=== PATIENT | female | born 1955 | race Caucasian/White ===

== ENCOUNTER → 2016-04-13 | Outpatient (CLI) | payer BC ==
[~2016-04-13] MED LIST: CIPR1TAB11 PO; LANS30CA12 PO; LOSA1TAB PO; LRT5 PO
[2016-04-13 09:55] LABS: ESTIMATED AVERAGE GLUCOSE 126 mg/dl; HA1C FLAG Normal (Normal)
[2016-04-13 09:59] LABS: ALT/SGPT 29 U/L (12-78); AST/SGOT 19 U/L (15-37); BLOOD UREA NITROGEN 23 mg/dl (7-18); BUN/CREATININE RATIO 32.5 (10-20); CALCIUM 9.6 mg/dl (8.5-10.1); CARBON DIOXIDE 26 mmol/L (21-32); CHLORIDE 106 mmol/L (98-107); CHOLESTEROL 227 mg/dl (0-200); CREATININE 0.71 mg/dl (0.60-1.20); GLUCOSE 104 mg/dl (70-99); POTASSIUM 4.6 mmol/L (3.5-5.1); SODIUM 142 mmol/L (136-145); TRIGLYCERIDES 95 mg/dl (0-150); VERY LOW DENSITY LIPOPROT CALC 19 mg/dl
[2016-04-13 10:02] LABS: ALB/GLOB RATIO 1.3 (0.9-2); ALKALINE PHOSPHATASE 91 U/L (45-117); CHOLESTEROL/HDL RATIO 3.8; HDL CHOLESTEROL 60 mg/dl; LDL CHOLESTEROL CALCULATED 148 mg/dl
== END | disposition home or self-care (01) ==
LOC: C.LAB 08:55
PROVIDERS: ATTEND Family Medicine
DX: E78.00 Pure hypercholesterolemia, unspecified (principal); I10 Essential (primary) hypertension; R73.03 Prediabetes

== ENCOUNTER → 2016-07-14 | Outpatient (CLI) | payer BC ==
[~2016-07-14] MED LIST changes: +CALC-51 PO; +CPR/500 PO; +IMD2X PO; +LCTX PO; +MISCCAP80 PO; +MULT-506 PO; +OMEG10007 PO; +PHEN-1043 PO; +VITAMIN B12 PO; +VITAMIN D3 PO; +ZINC PO
[2016-07-14 11:24] LABS: BLOOD UREA NITROGEN 25 mg/dl (7-18); BUN/CREATININE RATIO 34.5 (10-20); CARBON DIOXIDE 29 mmol/L (21-32); CHLORIDE 108 mmol/L (98-107); CREATININE 0.73 mg/dl (0.60-1.20); GLUCOSE 92 mg/dl (70-99); PHOSPHORUS 2.9 mg/dl (2.5-4.9); POTASSIUM 4.3 mmol/L (3.5-5.1); SODIUM 144 mmol/L (136-145)
[2016-07-14 11:27] LABS: CALCIUM 9.6 mg/dl (8.5-10.1)
== END | disposition home or self-care (01) ==
LOC: C.LABBC 08:35
PROVIDERS: ATTEND Family Medicine
DX: Z00.00 Encounter for general adult medical examination without abnormal findings (principal); I10 Essential (primary) hypertension

== ENCOUNTER → 2016-09-03 | Outpatient (CLI) | payer BC ==
[~2016-09-03] MED LIST changes: -CALC-51 PO; -CPR/500 PO; -MISCCAP80 PO; -MULT-506 PO; -OMEG10007 PO; -VITAMIN B12 PO; -VITAMIN D3 PO; -ZINC PO
--- NOTE | 2016-09-03 14:05 | DIAGNOSTIC IMAGING REPORT ---
LEFT TIBIA/FIBULA 2 VIEWS ROUTINE CLINICAL HISTORY: 61 years-old Female presenting with TIBIA PAIN L, complaining of pain while sleeping for 1 month, no injury. TECHNIQUE: Frontal and lateral views of the left lower leg were obtained. COMPARISON: None. FINDINGS: No acute fracture or malalignment. No evidence of periosteal reaction. No cortical irregularity or thickening. No rtudy evidence of osseous mass. Grossly normal surrounding soft tissues. Knee joint and ankle joint grossly congruent. IMPRESSION: No abnormality of the left lower leg. Electronically signed by: Ramos Godoy M.D. 09/03/2016 2:03 PM Dictated Date/Time: 09/03/2016 2:01 PM
== END | disposition home or self-care (01) ==
LOC: C.RAD 13:41
PROVIDERS: ATTEND Family Medicine Sports Medicine
DX: M79.605 Pain in left leg (principal)

== ENCOUNTER → 2016-10-09 | Outpatient (CLI) | payer BC | END | disposition home or self-care (01) | LOC: C.LABSPEC 16:33 | PROVIDERS: ATTEND Physician Assistant | DX: N39.0 Urinary tract infection, site not specified (principal) ==

== ENCOUNTER → 2016-10-22 | Outpatient (CLI) | payer BC ==
[2016-10-22 12:17] LABS: URINE APPEARANCE CLEAR (CLEAR); URINE BILIRUBIN NEG (NEG); URINE COLOR YELLOW; URINE NITRITE NEG (NEG); URINE PH 5.5 (4.5-7.5); URINE SPECIFIC GRAVITY 1.012 (1.000-1.030); UROBILINOGEN NEG (NEG)
[2016-10-22 12:24] LABS: MANUAL MICROSCOPIC REQUIRED? NO; REVIEW REQ? NO
== END | disposition home or self-care (01) ==
LOC: C.LAB1850 11:30
PROVIDERS: ATTEND Physician Assistant
DX: N39.0 Urinary tract infection, site not specified (principal)

== ENCOUNTER → 2016-10-29 | Outpatient (CLI) | payer BC ==
--- NOTE | 2016-10-29 11:16 | DIAGNOSTIC IMAGING REPORT ---
KUB CLINICAL HISTORY: Urinary tract infection. FINDINGS: 2 AP supine abdominal radiographs are compared to study dated 04/02/2015 and correlated with abdominal CT dated 04/10/2015. There is a nonobstructed abdominal bowel gas pattern. There is no radiographic evidence of nephrolithiasis. Pelvic phlebolith are observed and a surgical clip is seen in the left pelvis. The skeletal structures are osteopenic. Moderate lumbosacral spondylosis is noted. IMPRESSION: There is no radiographic evidence of nephrolithiasis. Electronically signed by: Lan Cho M.D. 10/29/2016 11:14 AM Dictated Date/Time: 10/29/2016 11:13 AM
== END | disposition home or self-care (01) ==
LOC: C.RAD 10:44
PROVIDERS: ATTEND Urology
DX: N39.0 Urinary tract infection, site not specified (principal)

== ENCOUNTER → 2016-10-30 | Outpatient (CLI) | payer BC ==
[2016-10-30 16:33] LABS: URINE APPEARANCE CLOUDY (CLEAR); URINE BILIRUBIN NEG (NEG); URINE COLOR YELLOW; URINE NITRITE NEG (NEG); URINE SPECIFIC GRAVITY 1.015 (1.000-1.030); UROBILINOGEN NEG (NEG)
[2016-10-30 17:02] LABS: MANUAL MICROSCOPIC REQUIRED? NO; REVIEW REQ? NO
== END | disposition home or self-care (01) ==
LOC: C.LABBFT 15:28
PROVIDERS: ATTEND Physician Assistant Medical
DX: N39.0 Urinary tract infection, site not specified (principal)

== ENCOUNTER → 2016-11-03 | Outpatient (CLI) | payer BC | END | disposition home or self-care (01) | LOC: C.LABSPEC 16:56 | PROVIDERS: ATTEND Urology | DX: R30.0 Dysuria (principal); R31.9 Hematuria, unspecified; N39.0 Urinary tract infection, site not specified; N20.0 Calculus of kidney ==

== ENCOUNTER 2016-11-11 07:34 | Inpatient (IN) | payer BC ==
[~2016-11-11] VITALS: Ht 172.7 cm; Wt 90.3 kg
[~2016-11-11 07:34] MED LIST changes: -CIPR1TAB11 PO; -IMD2X PO; -LCTX PO; -LOSA1TAB PO; -PHEN-1043 PO
[2016-11-11] MEDS ORDERED: LORAZEPAM 2 MG/ML 1 ML VIAL IV STA (07:50)
[2016-11-11] MEDS ORDERED: SODIUM CHLORIDE 0.9% 1000ML 500 ML IV STA (07:50)
[2016-11-11] MEDS ORDERED: ONDANSETRON INJ 2 MG/ML 2 ML VIAL IV STA (07:50)
[2016-11-11] MEDS ORDERED: SODIUM CHLORIDE 0.9% 1000ML 1,000 ML IV STA (07:50)
--- NOTE | 2016-11-11 07:57 | EMERGENCY ROOM VISIT NOTE ---
History Report prepared by Rahul: Ladan Barrios Under the Supervision of: Dr. Lan Nunez M.D. First contact with patient: 07:45 Chief Complaint: ABDOMINAL PAIN Stated Complaint: ABD. PAIN, SWEATING, SHAKING Nursing Triage Summary: pain in abdomen started at 5 am. diarrhea. denies N/V History of Present Illness The patient is a 61 year old female who presents to the Emergency Room with complaints of intermittent abdominal pain that began around 0500 this morning. She currently rates her discomfort as a 2/10 in severity. The patient states that over the past month she has been being treated for UTIs. She states that she has been on two courses of Cipro. The patient states that she has been experiencing diarrhea and nausea this morning. She states that last evening she felt fine before going to bed. The patient states that she has been experiencing diaphoresis. She denies ever having pain like this in the past. The patient denies any history of abdominal surgeries or diverticulitis. She states that she had a normal colonoscopy many years ago. The patient reports a history of hypertension. She denies any hematochezia or melena. According to the patient's records, on the and 30 of October, she had salmonella growth in urine. Latest urine culture on 03 of November showed no growth. Source of History: patient Onset: 0500 this morning Position: abdomen Symptom Intensity: 2/10 Timing: intermittent Associated Symptoms: + diaphoresis, + nausea, + diarrhea, No melena, No hematochezia Review of Systems See HPI for pertinent positives & negatives. A total of 10 systems reviewed and were otherwise negative. Past Medical & Surgical Medical Problems: (1) Acid reflux (2) Hypertension (3) Osteoarthritis (4) SVT (supraventricular tachycardia) (5) UTI (urinary tract infection) Family History Cancer FH: heart disease Hypertension Social History Smoking Status: Never Smoker Smokeless Tobacco Use: No Alcohol Use: occasionally Drug Use: none Marital Status: Housing Status: lives with significant other Occupation Status: retired Current/Historical Medications Scheduled Ciprofloxacin Tab (Cipro), Unknown Dose PO BID Losartan Potassium (Cozaar), 1 TAB PO DAILY Allergies Coded Allergies: No Known Allergies (Unverified , 11/11/16) Physical Exam Vital Signs Date Time Temp Pulse Resp B/P (MAP) Pulse Ox O2 Delivery O2 Flow Rate FiO2 11/11/16 15:12 77 18 144/92 95 Room Air 11/11/16 14:06 71 18 141/80 91 Room Air 11/11/16 12:39 78 19 150/94 95 Room Air 11/11/16 11:07 79 18 157/98 95 Room Air 11/11/16 09:39 79 18 157/94 91 Room Air 11/11/16 08:53 36.5 75 18 178/104 92 Room Air 11/11/16 07:40 94 18 162/111 99 Room Air Physical Exam GENERAL: Patient is in moderate distress, secondary to pain, anxious. HEENT: No acute trauma, normocephalic atraumatic, mucous membranes moist, no nasal congestion, no scleral icterus. NECK: No stridor, no adenopathy, no meningismus, trachea is midline. LUNGS: Clear to auscultation bilaterally, no wheeze, no rhonchi, breath sounds equal. HEART: Without murmurs gallops or rubs, regular rate and rhythm. ABDOMEN: Soft, nontender, bowel sounds positive, no hernias, no peritonitis. EXTREMITIES: No cyanosis or edema, full range of motion of all the joints without pain or difficulty, no signs for acute trauma. NEUROLOGIC: Oriented x 3, no acute motor or sensory deficits, no focal weakness. Tremors noted. SKIN: No rash, no jaundice, no diaphoresis. Medical Decision & Procedures ER Provider Diagnostic Interpretation: Radiology results as stated below per my review and radiologist interpretation: CHEST ONE VIEW PORTABLE CLINICAL HISTORY: 61 years-old Female presenting with ABDOMINAL PAIN/GI. TECHNIQUE: Portable upright AP view of the chest was obtained. COMPARISON: 12/22/2014. FINDINGS: Atherosclerosis of aortic arch. Chronic silhouette normal in size. Mild hyperinflation. Focal linear opacity at the left lung base. No other focal infiltrate. No large effusion or pneumothorax. Anterior cervical fusion hardware noted. Upper abdomen normal. IMPRESSION: 1. Mild hyperinflation and minimal left basilar scarring or atelectasis. No convincing evidence of acute cardiopulmonary disease. Electronically signed by: Ramos Godoy M.D. 11/11/2016 8:27 AM Dictated Date/Time: 11/11/2016 8:26 AM The status of this report is Signed. Draft = Not yet reviewed or approved by Radiologist. Signed = Reviewed and approved by Radiologist. ABDOMEN AND PELVIS CT WITH IV AND ORAL CONTRAST CT DOSE: 943.90 mGycm HISTORY: Generalized abdominal pain. TECHNIQUE: Multiaxial CT images of the abdomen and pelvis were performed following the use of intravenous and oral contrast. A dose lowering technique was utilized adhering to the principles of ALARA. COMPARISON STUDY: Abdomen and pelvis CT 04/10/2015. FINDINGS: The lung bases are clear. Mild hepatic steatosis. The gallbladder, pancreas, spleen, and adrenal glands are unremarkable. A few subcentimeter bilateral renal hypodense lesions. These are too small to characterize. Slight delayed nephrogram on the right in comparison to the left with mild fullness within the right renal collecting system. No hydronephrosis. No ureteral stones. No retroperitoneal lymphadenopathy. The bladder is unremarkable. A few small calcified uterine fibroids. Colonic diverticulosis. Normal appendix. Possible descending colon thickening which favors underdistention. IMPRESSION: 1. Descending colon thickening is likely due to underdistention. However, a low-grade nonspecific colitis is considered less likely but not entirely excluded. Clinical correlation recommended. 2. Mild delayed right nephrogram in comparison to the left with mild right renal collecting fullness. No hydronephrosis. No ureteral calculi identified. This could represent a recently passed stone. Correlation with urinalysis to exclude the less likely possibility of an infectious process. 3. Extensive colonic diverticulosis. Electronically signed by: Christian Canas M.D. 11/11/2016 11:13 AM Dictated Date/Time: 11/11/2016 10:58 AM Laboratory Results 11/11/16 07:55 Red Blood Count 5.13, Mean Corpuscular Volume 88.5, Mean Corpuscular Hemoglobin 28.7, Mean Corpuscular Hemoglobin Concent 32.4, Mean Platelet Volume 9.9, Neutrophils (%) (Auto) 80.6, Lymphocytes (%) (Auto) 11.7, Monocytes (%) (Auto) 5.5, Eosinophils (%) (Auto) 1.5, Basophils (%) (Auto) 0.3, Neutrophils # (Auto) 11.05, Lymphocytes # (Auto) 1.61, Monocytes # (Auto) 0.75, Eosinophils # (Auto) 0.20, Basophils # (Auto) 0.04 11/11/16 07:55 Test 11/11/16 07:55 11/11/16 08:45 White Blood Count 13.71 K/uL (4.8-10.8) Red Blood Count 5.13 M/uL (4.2-5.4) Hemoglobin 14.7 g/dL (12.0-16.0) Hematocrit 45.4 % (37-47) Mean Corpuscular Volume 88.5 fL (80-100) Mean Corpuscular Hemoglobin 28.7 pg (25-34) Mean Corpuscular Hemoglobin Concent 32.4 g/dl (32-36) Platelet Count 342 K/uL (130-400) Mean Platelet Volume 9.9 fL (7.4-10.4) Neutrophils (%) (Auto) 80.6 % Lymphocytes (%) (Auto) 11.7 % Monocytes (%) (Auto) 5.5 % Eosinophils (%) (Auto) 1.5 % Basophils (%) (Auto) 0.3 % Neutrophils # (Auto) 11.05 K/uL (1.4-6.5) Lymphocytes # (Auto) 1.61 K/uL (1.2-3.4) Monocytes # (Auto) 0.75 K/uL (0.11-0.59) Eosinophils # (Auto) 0.20 K/uL (0-0.5) Basophils # (Auto) 0.04 K/uL (0-0.2) RDW Standard Deviation 42.6 fL (36.4-46.3) RDW Coefficient of Variation 13.1 % (11.5-14.5) Immature Granulocyte % (Auto) 0.4 % Immature Granulocyte # (Auto) 0.06 K/uL (0.00-0.02) Anion Gap 9.0 mmol/L (3-11) Est Creatinine Clear Calc Drug Dose 79.6 ml/min Estimated GFR () 84.5 Estimated GFR (Non- 72.9 BUN/Creatinine Ratio 21.8 (10-20) Calcium Level 10.0 mg/dl (8.5-10.1) Total Bilirubin 0.6 mg/dl (0.2-1) Aspartate Amino Transf (AST/SGOT) 17 U/L (15-37) Alanine Aminotransferase (ALT/SGPT) 28 U/L (12-78) Alkaline Phosphatase 113 U/L (45-117) Total Protein 7.8 gm/dl (6.4-8.2) Albumin 4.0 gm/dl (3.4-5.0) Globulin 3.8 gm/dl (2.5-4.0) Albumin/Globulin Ratio 1.1 (0.9-2) Lipase 230 U/L (73-393) Urine Color YELLOW Urine Appearance CLEAR (CLEAR) Urine pH 7.5 (4.5-7.5) Urine Specific [place] 1.013 (1.000-1.030) Urine Protein NEG (NEG) Urine Glucose (UA) NEG (NEG) Urine Ketones NEG (NEG) Urine Occult Blood NEG (NEG) Urine Nitrite NEG (NEG) Urine Bilirubin NEG (NEG) Urine Urobilinogen NEG (NEG) Urine Leukocyte Esterase NEG (NEG) Laboratory results reviewed by me. Medications Administered Medications (Trade) Dose Ordered Sig/Matt Route Start Time Stop Time Status Last Admin Dose Admin Sodium Chloride 500 ml @ 999 mls/hr Q31M STAT IV 11/11/16 07:50 11/11/16 08:20 DC 11/11/16 07:50 999 MLS/HR Ondansetron HCl (Zofran Inj) 4 mg NOW STAT IV 11/11/16 07:50 11/11/16 07:55 DC 11/11/16 08:14 4 MG Sodium Chloride 1,000 ml @ 125 mls/hr Q8H STAT IV 11/11/16 07:50 11/11/16 15:49 DC 11/11/16 08:15 125 MLS/HR Lorazepam (Ativan Inj) 0.5 mg NOW STAT IV 11/11/16 07:50 11/11/16 07:55 DC 11/11/16 08:14 0.5 MG Acetaminophen (Tylenol Tab) 1,000 mg NOW STAT PO 11/11/16 09:44 11/11/16 09:45 DC 11/11/16 09:56 1,000 MG ED Course 0746: The patient was evaluated in room A2. A complete history and physical exam was performed. 0750: Ordered Ativan Inj 0.5 mg IV, Sodium Chloride 1000 ml @ 125 mls/hr IV, Zofran Inj 4 mg IV, Sodium Chloride 500 ml @ 999 mls/hr IV. 0944: Ordered Tylenol Tab 1000 mg PO. 1140: I reevaluated the patient and she is resting. I discussed the exam findings with her and her family and I discussed the treatment plan. They verbalized complete understanding and agreement. The patient will be evaluated for further treatment. 1150: I discussed the patient's case with WALDO Coker. He will evaluate the patient for further treatment. Medical Decision The patient is a 61 year old female who presents to the ED with complaints of abdominal pain. Differential diagnoses considered include Dehydration, colitis , diverticulitis, fistula, UTI, anemia, electrolyte imbalance, foodborne illness , c-diff colitis.. There is a mild leukocytosis, this could be consistent with infection, no anemia. No significant electrolyte abnormality, kidney failure or hepatitis. There is no pancreatitis. Urinalysis does not show infection. Abdominal and pelvis CT shows a colitis, no diverticulitis or abscess. The patient's pain was subsiding on its own, she did not require strong pain medication. She was given some oral Tylenol. She received IV Ativan for anxiety, she was given IV saline. She received IV Zofran for nausea. The patient was able to provide a stool sample. Stool cultures are pending. Stool C. difficile was negative. Given the failure of outpatient treatment, given the ongoing issues, given the CT findings and leukocytosis, admission/observation was felt warranted. I spoke to the patient and case management assistant. The on-call hospitalist was consulted. Medication Reconcilliation Current Medication List: was personally reviewed by me Consults Time Called: 1145 Consulting Physician: WALDO Coker Returned Call: 1150 I discussed the patient's case with WALDO Coker. He will evaluate the patient for further treatment. Impression Primary Impression: Colitis Additional Impressions: Lower abdominal pain Failure of outpatient treatment Leukocytosis Diarrhea Scribe Attestation The scribe's documentation has been prepared under my direction and personally reviewed by me in its entirety. I confirm that the note above accurately reflects all work, treatment, procedures, and medical decision making performed by me. Departure Information Dispostion Being Evaluated By Hospitalist Referrals Arya Galloway M.D. (PCP) Patient Instructions My [facility] Problem Qualifiers
[2016-11-11] MEDS ORDERED: MoRPHine SULFATE 4 MG/ML 1 ML CARP\\VIAL IV PRN (08:00)
[2016-11-11 08:07] LABS: BASO % 0.3 %; BASO ABS # 0.04 K/uL (0-0.2); COMPLETE YES; EOS % 1.5 %; HEMATOCRIT 45.4 % (37-47); IG% 0.4 %; LYMPH % 11.7 %; LYMPH ABS # 1.61 K/uL (1.2-3.4); MEAN CELL VOLUME 88.5 fL (80-100); MEAN CORPUSCULAR HEMOGLOBIN 28.7 pg (25-34); MEAN CORPUSCULAR HGB CONC 32.4 g/dl (32-36); MEAN PLATELET VOLUME 9.9 fL (7.4-10.4); MONO % 5.5 %; NEUT % 80.6 %; PLATELET COUNT 342 K/uL (130-400); RED BLOOD COUNT 5.13 M/uL (4.2-5.4); WHITE BLOOD COUNT 13.71 K/uL (4.8-10.8)
[2016-11-11] MEDS ORDERED: CIPR1TAB11 PO (08:18)
[2016-11-11] MEDS ORDERED: LOSA1TAB PO (08:18)
[2016-11-11 08:25] LABS: BUN/CREATININE RATIO 21.8 (10-20); CREATININE 0.85 mg/dl (0.60-1.20); POTASSIUM 3.6 mmol/L (3.5-5.1)
[2016-11-11 08:28] LABS: ALB/GLOB RATIO 1.1 (0.9-2)
--- NOTE | 2016-11-11 08:28 | DIAGNOSTIC IMAGING REPORT ---
CHEST ONE VIEW PORTABLE CLINICAL HISTORY: 61 years-old Female presenting with ABDOMINAL PAIN/GI. TECHNIQUE: Portable upright AP view of the chest was obtained. COMPARISON: 12/22/2014. FINDINGS: Atherosclerosis of aortic arch. Chronic silhouette normal in size. Mild hyperinflation. Focal linear opacity at the left lung base. No other focal infiltrate. No large effusion or pneumothorax. Anterior cervical fusion hardware noted. Upper abdomen normal. IMPRESSION: 1. Mild hyperinflation and minimal left basilar scarring or atelectasis. No convincing evidence of acute cardiopulmonary disease. Electronically signed by: Ramos Godoy M.D. 11/11/2016 8:27 AM Dictated Date/Time: 11/11/2016 8:26 AM
[2016-11-11 09:01] LABS: URINE APPEARANCE CLEAR (CLEAR); URINE BILIRUBIN NEG (NEG); URINE COLOR YELLOW; URINE NITRITE NEG (NEG); URINE PH 7.5 (4.5-7.5); URINE SPECIFIC GRAVITY 1.013 (1.000-1.030); UROBILINOGEN NEG (NEG); ZZURINE CULT IF INDIC CATH NO
[2016-11-11 09:02] LABS: MANUAL MICROSCOPIC REQUIRED? NO; REVIEW REQ? NO
[2016-11-11] MEDS ORDERED: HydrALAZINE HCL 20 MG/ML VIAL IV STA (09:21)
[2016-11-11] MEDS ORDERED: ACETAMINOPHEN 500 MG TAB PO STA (09:44)
--- NOTE | 2016-11-11 11:14 | DIAGNOSTIC IMAGING REPORT ---
ABDOMEN AND PELVIS CT WITH IV AND ORAL CONTRAST CT DOSE: 943.90 mGycm HISTORY: Generalized abdominal pain. TECHNIQUE: Multiaxial CT images of the abdomen and pelvis were performed following the use of intravenous and oral contrast. A dose lowering technique was utilized adhering to the principles of ALARA. COMPARISON STUDY: Abdomen and pelvis CT 04/10/2015. FINDINGS: The lung bases are clear. Mild hepatic steatosis. The gallbladder, pancreas, spleen, and adrenal glands are unremarkable. A few subcentimeter bilateral renal hypodense lesions. These are too small to characterize. Slight delayed nephrogram on the right in comparison to the left with mild fullness within the right renal collecting system. No hydronephrosis. No ureteral stones. No retroperitoneal lymphadenopathy. The bladder is unremarkable. A few small calcified uterine fibroids. Colonic diverticulosis. Normal appendix. Possible descending colon thickening which favors underdistention. IMPRESSION: 1. Descending colon thickening is likely due to underdistention. However, a low-grade nonspecific colitis is considered less likely but not entirely excluded. Clinical correlation recommended. 2. Mild delayed right nephrogram in comparison to the left with mild right renal collecting fullness. No hydronephrosis. No ureteral calculi identified. This could represent a recently passed stone. Correlation with urinalysis to exclude the less likely possibility of an infectious process. 3. Extensive colonic diverticulosis. Electronically signed by: Christian Canas M.D. 11/11/2016 11:13 AM Dictated Date/Time: 11/11/2016 10:58 AM
--- NOTE | 2016-11-11 14:29 | History and Physical ---
History & Physical Date & Time of Service: Nov 11, 2016 at 14:11 Chief Complaint: Abd. Pain, Sweating, Shaking Primary Care Physician: No Doctor, Assigned History of Present Illness Source: patient Past Medical/Surgical History Medical Problems: (1) Acid reflux Status: Chronic (2) Hypertension Status: Chronic (3) Osteoarthritis Status: Chronic (4) SVT (supraventricular tachycardia) Status: Resolved (5) UTI (urinary tract infection) Status: Resolved Family History Cancer FH: heart disease Hypertension Social History Smoking Status: Never Smoker Smokeless Tobacco Use: No Drug Use: none Marital Status: Occupational Status: retired Immunizations History of Influenza Vaccine: Yes Influenza Vaccine Date: Nov 11, 2009 History of Tetanus Vaccine?: Yes Tetanus Immunization Date: Sep 11, 2009 History of Pneumococcal: No History of Hepatitis B Vaccine: Yes Multi-Drug Resistant Organisms History of MDRO: No Allergies Coded Allergies: No Known Allergies (Unverified , 11/11/16) Home Medications Scheduled Ciprofloxacin Tab (Cipro), Unknown Dose PO BID Losartan Potassium (Cozaar), 1 TAB PO DAILY Physical Exam Vital Signs Date Time Temp Pulse Resp B/P (MAP) Pulse Ox O2 Delivery O2 Flow Rate FiO2 11/11/16 12:39 78 19 150/94 95 Room Air 11/11/16 11:07 79 18 157/98 95 Room Air 11/11/16 09:39 79 18 157/94 91 Room Air 11/11/16 08:53 36.5 75 18 178/104 92 Room Air 11/11/16 07:40 94 18 162/111 99 Room Air Diagnostics Laboratory Results Results Past 24 Hours Test 11/11/16 07:55 11/11/16 08:45 Range/Units White Blood Count 13.71 4.8-10.8 K/uL Red Blood Count 5.13 4.2-5.4 M/uL Hemoglobin 14.7 12.0-16.0 g/dL Hematocrit 45.4 37-47 % Mean Corpuscular Volume 88.5 80-100 fL Mean Corpuscular Hemoglobin 28.7 25-34 pg Mean Corpuscular Hemoglobin Concent 32.4 32-36 g/dl Platelet Count 342 130-400 K/uL Mean Platelet Volume 9.9 7.4-10.4 fL Neutrophils (%) (Auto) 80.6 % Lymphocytes (%) (Auto) 11.7 % Monocytes (%) (Auto) 5.5 % Eosinophils (%) (Auto) 1.5 % Basophils (%) (Auto) 0.3 % Neutrophils # (Auto) 11.05 1.4-6.5 K/uL Lymphocytes # (Auto) 1.61 1.2-3.4 K/uL Monocytes # (Auto) 0.75 0.11-0.59 K/uL Eosinophils # (Auto) 0.20 0-0.5 K/uL Basophils # (Auto) 0.04 0-0.2 K/uL RDW Standard Deviation 42.6 36.4-46.3 fL RDW Coefficient of Variation 13.1 11.5-14.5 % Immature Granulocyte % (Auto) 0.4 % Immature Granulocyte # (Auto) 0.06 0.00-0.02 K/uL Sodium Level 140 136-145 mmol/L Potassium Level 3.6 3.5-5.1 mmol/L Chloride Level 106 98-107 mmol/L Carbon Dioxide Level 25 21-32 mmol/L Anion Gap 9.0 3-11 mmol/L Blood Urea Nitrogen 19 7-18 mg/dl Creatinine 0.85 0.60-1.20 mg/dl Est Creatinine Clear Calc Drug Dose 79.6 ml/min Estimated GFR () 84.5 Estimated GFR (Non- 72.9 BUN/Creatinine Ratio 21.8 10-20 Random Glucose 129 70-99 mg/dl Calcium Level 10.0 8.5-10.1 mg/dl Total Bilirubin 0.6 0.2-1 mg/dl Aspartate Amino Transf (AST/SGOT) 17 15-37 U/L Alanine Aminotransferase (ALT/SGPT) 28 12-78 U/L Alkaline Phosphatase 113 45-117 U/L Total Protein 7.8 6.4-8.2 gm/dl Albumin 4.0 3.4-5.0 gm/dl Globulin 3.8 2.5-4.0 gm/dl Albumin/Globulin Ratio 1.1 0.9-2 Lipase 230 73-393 U/L Urine Color YELLOW Urine Appearance CLEAR CLEAR Urine pH 7.5 4.5-7.5 Urine Specific [place] 1.013 1.000-1.030 Urine Protein NEG NEG Urine Glucose (UA) NEG NEG Urine Ketones NEG NEG Urine Occult Blood NEG NEG Urine Nitrite NEG NEG Urine Bilirubin NEG NEG Urine Urobilinogen NEG NEG Urine Leukocyte Esterase NEG NEG Microbiology Results 11/11/16 Shiga Toxin Test, Received Pending 11/11/16 Stool Culture, Received Pending 11/11/16 C.difficile Toxin B Gene (PCR), Received Pending Diagnostic Radiology CT abdomen/pelvis: 1. Descending colon thickening is likely due to underdistention. However, a low- grade nonspecific colitis is considered less likely but not entirely excluded. Clinical correlation recommended. 2. Mild delayed right nephrogram in comparison to the left with mild right renal collecting fullness. No hydronephrosis. No ureteral calculi identified. This could represent a recently passed stone. Correlation with urinalysis to exclude the less likely possibility of an infectious process. 3. Extensive colonic diverticulosis.
--- NOTE | 2016-11-11 15:12 | History and Physical ---
History & Physical Date & Time of Service: Nov 11, 2016 at 14:57 Chief Complaint: Abd. Pain, Sweating, Shaking Primary Care Physician: No Doctor, Assigned History of Present Illness Source: patient, family Ms. Miranda began having a lot of abdominal pain with diarrhea as well as diaphoresis, shakes, and chills this morning around 0500. She thinks she may have had a syncopal event on the toilet and again when she got herself into bed. She has been having urinary tract infections starting in October. She was started on macrobid but was changed to amoxil after being diagnosed with salmonella without relief of symptoms. Urine was rechecked and was clear. She was again diagnosed with salmonella in her urine last week. She was then started on Cipro. She then saw Dr. Ng in urology who gave her another seven days of Cipro. She denies blood in her stool, vomiting, or fever. She did have chicken salad and some potato salad yesterday afternoon. No sick contacts History significant for htn, frequent UTIs Past Medical/Surgical History Medical Problems: (1) Acid reflux Status: Chronic (2) Hypertension Status: Chronic (3) Osteoarthritis Status: Chronic (4) SVT (supraventricular tachycardia) Status: Resolved (5) UTI (urinary tract infection) Status: Resolved Family History Cancer FH: heart disease Hypertension Social History Smoking Status: Never Smoker Smokeless Tobacco Use: No Drug Use: none Marital Status: Occupational Status: retired Immunizations History of Influenza Vaccine: Yes Influenza Vaccine Date: Nov 11, 2009 History of Tetanus Vaccine?: Yes Tetanus Immunization Date: Sep 11, 2009 History of Pneumococcal: No History of Hepatitis B Vaccine: Yes Multi-Drug Resistant Organisms History of MDRO: No Allergies Coded Allergies: No Known Allergies (Unverified , 11/11/16) Home Medications Scheduled Ciprofloxacin Tab (Cipro), Unknown Dose PO BID Losartan Potassium (Cozaar), 1 TAB PO DAILY Review of Systems Constitutional: + chills Respiratory: No shortness of breath Cardiovascular: No chest pain Abdomen: + pain, + nausea, + diarrhea, No vomiting, No GI bleeding Genitourinary - Female: + dysuria Physical Exam Vital Signs Date Time Temp Pulse Resp B/P (MAP) Pulse Ox O2 Delivery O2 Flow Rate FiO2 11/11/16 14:06 71 18 141/80 91 Room Air 11/11/16 12:39 78 19 150/94 95 Room Air 11/11/16 11:07 79 18 157/98 95 Room Air 11/11/16 09:39 79 18 157/94 91 Room Air 11/11/16 08:53 36.5 75 18 178/104 92 Room Air 11/11/16 07:40 94 18 162/111 99 Room Air General: no distress Eyes: normal inspection, PERLL Respiratory: chest non tender, clear to auscultation, normal breath sounds, no respiratory distress, no accessory muscle use Cardiac: regular rate and rhythm, no rub or gallop, no murmur, no edema, no jvd GI/: active bowel sounds, suprapubic tenderneess, soft, non distended Extremities: normal range of motion, normal strength, non tender Neuro/Psych: alert and oriented x 3, normal mood and affect Skin: normal color, dry Diagnostics Laboratory Results Results Past 24 Hours Test 11/11/16 07:55 11/11/16 08:45 Range/Units White Blood Count 13.71 4.8-10.8 K/uL Red Blood Count 5.13 4.2-5.4 M/uL Hemoglobin 14.7 12.0-16.0 g/dL Hematocrit 45.4 37-47 % Mean Corpuscular Volume 88.5 80-100 fL Mean Corpuscular Hemoglobin 28.7 25-34 pg Mean Corpuscular Hemoglobin Concent 32.4 32-36 g/dl Platelet Count 342 130-400 K/uL Mean Platelet Volume 9.9 7.4-10.4 fL Neutrophils (%) (Auto) 80.6 % Lymphocytes (%) (Auto) 11.7 % Monocytes (%) (Auto) 5.5 % Eosinophils (%) (Auto) 1.5 % Basophils (%) (Auto) 0.3 % Neutrophils # (Auto) 11.05 1.4-6.5 K/uL Lymphocytes # (Auto) 1.61 1.2-3.4 K/uL Monocytes # (Auto) 0.75 0.11-0.59 K/uL Eosinophils # (Auto) 0.20 0-0.5 K/uL Basophils # (Auto) 0.04 0-0.2 K/uL RDW Standard Deviation 42.6 36.4-46.3 fL RDW Coefficient of Variation 13.1 11.5-14.5 % Immature Granulocyte % (Auto) 0.4 % Immature Granulocyte # (Auto) 0.06 0.00-0.02 K/uL Sodium Level 140 136-145 mmol/L Potassium Level 3.6 3.5-5.1 mmol/L Chloride Level 106 98-107 mmol/L Carbon Dioxide Level 25 21-32 mmol/L Anion Gap 9.0 3-11 mmol/L Blood Urea Nitrogen 19 7-18 mg/dl Creatinine 0.85 0.60-1.20 mg/dl Est Creatinine Clear Calc Drug Dose 79.6 ml/min Estimated GFR () 84.5 Estimated GFR (Non- 72.9 BUN/Creatinine Ratio 21.8 10-20 Random Glucose 129 70-99 mg/dl Calcium Level 10.0 8.5-10.1 mg/dl Total Bilirubin 0.6 0.2-1 mg/dl Aspartate Amino Transf (AST/SGOT) 17 15-37 U/L Alanine Aminotransferase (ALT/SGPT) 28 12-78 U/L Alkaline Phosphatase 113 45-117 U/L Total Protein 7.8 6.4-8.2 gm/dl Albumin 4.0 3.4-5.0 gm/dl Globulin 3.8 2.5-4.0 gm/dl Albumin/Globulin Ratio 1.1 0.9-2 Lipase 230 73-393 U/L Urine Color YELLOW Urine Appearance CLEAR CLEAR Urine pH 7.5 4.5-7.5 Urine Specific [place] 1.013 1.000-1.030 Urine Protein NEG NEG Urine Glucose (UA) NEG NEG Urine Ketones NEG NEG Urine Occult Blood NEG NEG Urine Nitrite NEG NEG Urine Bilirubin NEG NEG Urine Urobilinogen NEG NEG Urine Leukocyte Esterase NEG NEG Microbiology Results 11/11/16 Shiga Toxin Test, Received Pending 11/11/16 Stool Culture, Received Pending 11/11/16 C.difficile Toxin B Gene (PCR) - Final, Complete No C. difficile toxin B gene detected Impression Assessment and Plan Ms. Miranda is a 61 year old woman here for diarrhea with possible syncopal event this morning. 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 Diarrhea/colitis - It is possible that the colitis is due to salmonella infection given that it has been persistent in her urine. Alternative etiologies include food poisoning or viral infection. She shows mild colitis on imaging. -admit observation to the medical floor. -C. diff negative, stool cultures pending, -continue Cipro, start Flagyl, -clear liquid diet -NSS - morphine for pain Syncope - likely vagal event as it was associated with a bowel movement and diaphoresis. HTN - continue losartan DVT prophylaxis - SCDs Full resuscitation. Resident Physician Supervision Note: Pt seen/evaluated following discussion with GYNECOLOGICAL ASSISTANT. I discussed the case with the GYNECOLOGICAL ASSISTANT and agree with the findings and plan as documented in the note. Any exceptions or clarifications are listed here: 61 y/o F - recent UTI and 2x positive Salmonella group C cultures in urine Presenting with severe abdominal pain, diarrhea - syncopal pr near syncopal episode on toilet and again when getting up. OE AAO x 3 S1,2 R CTAB + diffuse, mild tenderness No CCE No deficits P: There is mild colitis seen on CT - C-diff is negative - unclear if this is rellated to her recent + culture r simply unrelated infectious colitis - it may be that she would reuire Cipro at a higher dose if stool is + She is admitted for IVF, cultures and IV antibiotics due to her syncopal episodes We will consult ID Cont Losartan for HTN Discussed above with pt and ER attending Documented By: Alex Davis Advanced Directives Existing Advance Directive: Yes Existing Living Will: Yes Existing Power of Cell Assembly Pinner: Yes () Resuscitation Status FULL RESUSCITATION VTE Prophylaxis VTE Risk Assessment Done? Y/N: Yes Risk Level: Moderate
[2016-11-11] MEDS ORDERED: MoRPHine SULFATE 2 MG/ML CARP IV PRN (15:30)
[2016-11-11] MEDS ORDERED: ONDANSETRON INJ 2 MG/ML 2 ML VIAL IV PRN (15:30)
[2016-11-11] MEDS ORDERED: LORAZEPAM 0.5 MG TAB PO PRN (15:30)
[2016-11-11] MEDS ORDERED: IV FLUIDS COMPLETED PRN (16:15)
[2016-11-11 17:00] VITALS: BP 158/79; PULSE 68; TEMP 37.3; O2SAT 97
[2016-11-11] MEDS: SODIUM CHLORIDE 0.9% 1000ML 1,000 ML IV SCH ×2 (17:59→23:36)
[2016-11-11] MEDS: ACETAMINOPHEN 325 MG TAB PO PRN ×2 (18:15→22:02)
[2016-11-11 18:23] VITALS: BP 156/91; PULSE 68; TEMP 37.3; O2SAT 97; Ht 172.7 cm; Wt 90.3 kg
[2016-11-11] MEDS: METRONIDAZOLE 500 MG TAB PO SCH ×2 (19:35→23:33)
[2016-11-11] MEDS: CIPROFLOXACIN 500 MG TAB PO SCH (20:12)
[2016-11-11] MEDS ORDERED: CIPROFLOXACIN 500 MG TAB PO SCH (21:00)
[2016-11-11 22:34] VITALS: BP 157/79; PULSE 67; TEMP 37; O2SAT 95
[2016-11-12] MEDS: ACETAMINOPHEN 325 MG TAB PO PRN ×2 (03:13→16:58)
[2016-11-12] MEDS: METRONIDAZOLE 500 MG TAB PO SCH ×3 (05:47→21:56)
[2016-11-12 05:54] LABS: BASO % 0.6 %; BASO ABS # 0.04 K/uL (0-0.2); COMPLETE YES; EOS % 3.5 %; HEMATOCRIT 37.7 % (37-47); IG% 0.1 %; LYMPH % 32.7 %; LYMPH ABS # 2.24 K/uL (1.2-3.4); MEAN CELL VOLUME 89.3 fL (80-100); MEAN CORPUSCULAR HEMOGLOBIN 30.1 pg (25-34); MEAN CORPUSCULAR HGB CONC 33.7 g/dl (32-36); MEAN PLATELET VOLUME 9.6 fL (7.4-10.4); MONO % 7.9 %; NEUT % 55.2 %; PLATELET COUNT 280 K/uL (130-400); RED BLOOD COUNT 4.22 M/uL (4.2-5.4); WHITE BLOOD COUNT 6.84 K/uL (4.8-10.8)
[2016-11-12 06:20] LABS: BUN/CREATININE RATIO 12.3 (10-20); CREATININE 0.75 mg/dl (0.60-1.20); POTASSIUM 3.6 mmol/L (3.5-5.1)
[2016-11-12 06:41] LABS: CALCIUM 8.3 mg/dl (8.5-10.1)
[2016-11-12 07:09] VITALS: BP 143/73; PULSE 62; TEMP 36.9; O2SAT 96
[2016-11-12] MEDS: SODIUM CHLORIDE 0.9% 1000ML 1,000 ML IV SCH ×3 (07:09→23:16)
[2016-11-12 08:00] VITALS: O2SAT 96
[2016-11-12] MEDS: LOSARTAN POTASSIUM 25 MG TAB PO SCH (08:04)
[2016-11-12] MEDS: CIPROFLOXACIN 500 MG TAB PO SCH ×2 (08:05→20:44)
--- NOTE | 2016-11-12 10:22 | Medical Consult ---
Consultation Date of Consultation: Nov 12, 2016. Attending Physician: Geovanni Nolen D.O. Reason for Consultation: Two positive salmonella cultures History of Present Illness 61-year-old female who was in usual state of health until early October when she had the onset of dysuria and frequency with foul smelling urine. She saw her primary care doctor obtain urine culture which was positive for group C salmonella. She received a course of amoxicillin 250 t.i.d. with some improvement in symptoms. Soon after discontinuation she had recurrence of her symptoms. Follow-up culture was negative at that time. Symptoms persisted and became progressively worse, and another culture was positive for Salmonella. She was then treated with 2 courses of 1 week of Cipro without improvement. She then developed acute onset of worsening abdominal pain with chills and weakness with several syncopal events, and was admitted to the hospital for further management.She currently is receiving IV ciprofloxacin. Still feels miserable. Abdominal pain persists, 3/10 in intensity at present. Having diarrhea. Past Medical/Surgical History Medical Problems: (1) Colitis Status: Acute (2) Diarrhea Status: Acute (3) Failure of outpatient treatment Status: Acute (4) Leukocytosis Status: Acute (5) Lower abdominal pain Status: Acute Medical Problems: (1) Acid reflux (2) Hypertension (3) Osteoarthritis (4) SVT (supraventricular tachycardia) (5) UTI (urinary tract infection) Family History Cancer FH: heart disease Hypertension Social History Smoking Status: Never Smoker Smokeless Tobacco Use: No Drug Use: none Marital Status: Housing Status: lives with significant other Occupation Status: retired Allergies Coded Allergies: No Known Allergies (Unverified , 11/11/16) Current Inpatient Medications Current Inpatient Medications Medications (Trade) Dose Ordered Sig/Matt Route Start Time Stop Time Status Last Admin Dose Admin Acetaminophen (Tylenol Tab) 650 mg Q4H PRN PO 11/11/16 15:30 12/11/16 15:29 11/12/16 03:13 650 MG Ondansetron HCl (Zofran Inj) 4 mg Q6H PRN IV 11/11/16 15:30 12/11/16 15:29 Morphine Sulfate (MoRPHine SULFATE INJ) 2 mg Q4H PRN IV 11/11/16 15:30 11/25/16 15:29 11/12/16 05:54 2 MG Sodium Chloride 1,000 ml @ 125 mls/hr Q8H IV 11/11/16 15:30 12/11/16 15:29 11/12/16 07:09 125 MLS/HR Metronidazole (Flagyl Tab) 500 mg Q8 PO 11/11/16 17:30 11/21/16 17:29 11/12/16 05:47 500 MG Lorazepam (Ativan Tab) 0.5 mg Q6H PRN PO 11/11/16 15:30 12/11/16 15:29 Losartan Potassium (coZAAR TAB) 25 mg DAILY PO 11/12/16 09:00 12/12/16 08:59 11/12/16 08:04 25 MG Miscellaneous (Iv Fluids Completed) 1 ea PRN PRN N/A 11/11/16 16:15 11/11/17 16:14 Ciprofloxacin (Cipro Tab) 500 mg BID PO 11/11/16 21:00 11/21/16 20:59 11/12/16 08:05 500 MG Review of Systems Constitutional: + fever, + chills, + sweats, + weakness, + fatigue Eyes: No problem reported ENT: No problem reported Abdomen: + pain, + nausea, + diarrhea Musculoskeletal: No problem reported Genitourinary - Female: + dysuria, + urinary frequency Neurologic: + problem reported (Syncope) Psychiatric: No problem reported Endocrine: No problem reported Hematologic / Lymphatic: No problem reported Integumentary: No problem reported Allergic / Immunologic: No problem reported Physical Exam Date Time Temp Pulse Resp B/P (MAP) Pulse Ox O2 Delivery O2 Flow Rate FiO2 11/12/16 08:00 96 Room Air 11/12/16 07:09 36.9 62 20 143/73 (96) 96 11/12/16 00:00 Room Air 11/11/16 22:34 37.0 67 18 157/79 (105) 95 Room Air 11/11/16 18:23 37.3 68 18 156/91 97 Room Air 11/11/16 17:06 67 18 156/91 95 11/11/16 17:00 37.3 68 16 158/79 (105) 97 Room Air 11/11/16 16:59 67 18 156/91 95 Room Air 11/11/16 15:12 77 18 144/92 95 Room Air 11/11/16 14:06 71 18 141/80 91 Room Air 11/11/16 12:39 78 19 150/94 95 Room Air 11/11/16 11:07 79 18 157/98 95 Room Air General Appearance: WD/WN, no apparent distress Head: normocephalic, atraumatic Eyes: normal inspection, EOMI, sclerae normal ENT: normal ENT inspection, hearing grossly normal, pharynx normal Neck: supple, no adenopathy, thyroid normal, trachea midline Respiratory/Chest: chest non-tender, lungs clear, normal breath sounds, no respiratory distress Cardiovascular: regular rate, rhythm, no gallop, no murmur Abdomen/GI: normal bowel sounds, soft, no organomegaly, + tenderness Back: normal inspection, no CVA tenderness Extremities/Musculoskelatal: normal inspection, no calf tenderness, non-tender Neurologic/Psych: alert, oriented x 3 Skin: normal color, warm/dry, no rash Lymphatic: no adenopathy Laboratory Results Date/Time Source Procedure Growth Status 11/12/16 05:36 Blood Blood Culture Pending Received 11/12/16 05:36 Blood Blood Culture Pending Received 11/11/16 13:10 Stool Shiga Toxin Test Pending Received 11/11/16 13:10 Stool Stool Culture Pending Received 11/11/16 13:10 Stool C.difficile Toxin B Gene (PCR) - Final No C. difficile toxin B gene detected Complete Last 24 Hours Test 11/12/16 04:44 White Blood Count 6.84 K/uL Red Blood Count 4.22 M/uL Hemoglobin 12.7 g/dL Hematocrit 37.7 % Mean Corpuscular Volume 89.3 fL Mean Corpuscular Hemoglobin 30.1 pg Mean Corpuscular Hemoglobin Concent 33.7 g/dl Platelet Count 280 K/uL Mean Platelet Volume 9.6 fL Neutrophils (%) (Auto) 55.2 % Lymphocytes (%) (Auto) 32.7 % Monocytes (%) (Auto) 7.9 % Eosinophils (%) (Auto) 3.5 % Basophils (%) (Auto) 0.6 % Neutrophils # (Auto) 3.77 K/uL Lymphocytes # (Auto) 2.24 K/uL Monocytes # (Auto) 0.54 K/uL Eosinophils # (Auto) 0.24 K/uL Basophils # (Auto) 0.04 K/uL RDW Standard Deviation 43.8 fL RDW Coefficient of Variation 13.4 % Immature Granulocyte % (Auto) 0.1 % Immature Granulocyte # (Auto) 0.01 K/uL Sodium Level 143 mmol/L Potassium Level 3.6 mmol/L Chloride Level 109 mmol/L Carbon Dioxide Level 27 mmol/L Anion Gap 7.0 mmol/L Blood Urea Nitrogen 9 mg/dl Creatinine 0.75 mg/dl Est Creatinine Clear Calc Drug Dose 90.2 ml/min Estimated GFR () 98.3 Estimated GFR (Non- 84.8 BUN/Creatinine Ratio 12.3 Random Glucose 108 mg/dl Calcium Level 8.3 mg/dl Patient Name: BAL REGAN Unit Number: [id number] Dictated: 11/11/[id number] Transcribed: 11/11/161057 [facility] Printed Date/Time: [~ rep prt dt]/[~ rep prt tm] [~ rep ct labl] - [~ rep ct ivnm] [facility] [place] [address] Dictated: 11/11/161057 Transcribed: 11/11/161057 [employer] Printed Date/Time: [~ rep prt dt]/[~ rep prt tm] [~ rep ct labl] - [~ rep ct ivnm] ABDOMEN AND PELVIS CT WITH IV AND ORAL CONTRAST CT DOSE: 943.90 mGycm HISTORY: Generalized abdominal pain. TECHNIQUE: Multiaxial CT images of the abdomen and pelvis were performed following the use of intravenous and oral contrast. A dose lowering technique was utilized adhering to the principles of ALARA. COMPARISON STUDY: Abdomen and pelvis CT 04/10/2015. FINDINGS: The lung bases are clear. Mild hepatic steatosis. The gallbladder, pancreas, spleen, and adrenal glands are unremarkable. A few subcentimeter bilateral renal hypodense lesions. These are too small to characterize. Slight delayed nephrogram on the right in comparison to the left with mild fullness within the right renal collecting system. No hydronephrosis. No ureteral stones. No retroperitoneal lymphadenopathy. The bladder is unremarkable. A few small calcified uterine fibroids. Colonic diverticulosis. Normal appendix. Possible descending colon thickening which favors underdistention. IMPRESSION: 1. Descending colon thickening is likely due to underdistention. However, a low-grade nonspecific colitis is considered less likely but not entirely excluded. Clinical correlation recommended. 2. Mild delayed right nephrogram in comparison to the left with mild right renal collecting fullness. No hydronephrosis. No ureteral calculi identified. This could represent a recently passed stone. Correlation with urinalysis to exclude the less likely possibility of an infectious process. 3. Extensive colonic diverticulosis. Electronically signed by: Christian Canas M.D. 11/11/2016 11:13 AM Dictated Date/Time: 11/11/2016 10:58 AM The status of this report is Signed. Draft = Not yet reviewed or approved by Radiologist. Signed = Reviewed and approved by Radiologist. <AttendingPhy></AttendingPhy> <FamilyPhy>No Doctor, Assigned</FamilyPhy> < PrimaryPhy>No Doctor, Assigned</PrimaryPhy> <UnitNumber>[id number]</UnitNumber> <VisitNumber>[id number]</VisitNumber> <PatientName>BAL REGAN</PatientName> <DateOfBirth>1955</DateOfBirth> <Location>[facility]</Location> <ServiceDate></ServiceDate> <MNE>ESINDI</MNE> <OrderingPhy>Lan Nunez M.D.</ OrderingPhy> <OrderingPhyMNE>f rep ord dr goins</OrderingPhyMNE> <DictatingPhyMNE> f rep dict dr goins</DictatingPhyMNE> <CCListMNE>f rep ct buster</CCListMNE> < AdmittingPhyMNE>f pt admit dr goins</AdmittingPhyMNE> <AttendingPhyMNE>f pt attend dr goins</AttendingPhyMNE> <ConsultingPhyMNE>f pt consult dr goins</ConsultingPhyMNE> <FamilyPhyMNE>f pt fam dr goins</FamilyPhyMNE> <OtherPhyMNE>f pt other dr goins</OtherPhyMNE> < PrimaryPhyMNE>f pt prim care dr goins</PrimaryPhyMNE> <ReferringPhyMNE>f pt referring dr goins</ReferringPhyMNE> Assessment & Plan Patient with urinary symptoms and salmonella in urine culture, not clearly responding to ciprofloxacin, with ongoing symptoms but negative urinalysis. CT scan suggests possibility of right renal infection. Although unusual to find urine cultures, urinary tract can be involved disseminated seminal infections, but may also be found with patients with bacteremia. I have ordered blood cultures, and would recommend echocardiogram. I will change patient to IV ceftriaxone given possibility of ciprofloxacin resistance. Will discuss with all involved. Will follow.
[2016-11-12] MEDS ORDERED: KETOROLAC TROMETHAMINE 30 MG/ML VIAL IV STA (12:57)
--- NOTE | 2016-11-12 13:31 | Hospitalist Progress Note ---
Hospitalist Progress Note Date of Service Nov 12, 2016. Subjective Pt evaluation today including: conversation w/ patient, conversation w/ family , physical exam, chart review, lab review, review of inpatient medication list Voiding: no voiding problems Ms. Miranda is feeling somewhat better today than yesterday. She has had no further diarrhea after last night. She has tenderness in her abdomen but the pain is not as acute as last night. She continues to have dysuria. Constitutional: No fever, No chills Respiratory: + cough, No sputum, No shortness of breath Cardiovascular: No chest pain, No palpitations Abdomen: + pain, No nausea, No vomiting, No diarrhea Female : + dysuria All Other Systems: Reviewed and Negative Medications Medications (Trade) Dose Ordered Sig/Matt Route Start Time Stop Time Status Last Admin Dose Admin Acetaminophen (Tylenol Tab) 650 mg Q4H PRN PO 11/11/16 15:30 12/11/16 15:29 11/12/16 03:13 650 MG Morphine Sulfate (MoRPHine SULFATE INJ) 2 mg Q4H PRN IV 11/11/16 15:30 11/25/16 15:29 11/12/16 05:54 2 MG Sodium Chloride 1,000 ml @ 125 mls/hr Q8H IV 11/11/16 15:30 12/11/16 15:29 11/12/16 07:09 125 MLS/HR Metronidazole (Flagyl Tab) 500 mg Q8 PO 11/11/16 17:30 11/21/16 17:29 11/12/16 05:47 500 MG Losartan Potassium (coZAAR TAB) 25 mg DAILY PO 11/12/16 09:00 12/12/16 08:59 11/12/16 08:04 25 MG Ciprofloxacin (Cipro Tab) 500 mg BID PO 11/11/16 21:00 11/21/16 20:59 11/12/16 08:05 500 MG Ketorolac Tromethamine (Toradol Inj) 30 mg NOW STAT IV 11/12/16 12:57 11/12/16 13:03 DC 11/12/16 13:12 30 MG Objective Vital Signs Date Time Temp Pulse Resp B/P (MAP) Pulse Ox O2 Delivery O2 Flow Rate FiO2 11/12/16 08:00 96 Room Air 11/12/16 07:09 36.9 62 20 143/73 (96) 96 11/12/16 00:00 Room Air 11/11/16 22:34 37.0 67 18 157/79 (105) 95 Room Air 11/11/16 18:23 37.3 68 18 156/91 97 Room Air 11/11/16 17:06 67 18 156/91 95 11/11/16 17:00 37.3 68 16 158/79 (105) 97 Room Air 11/11/16 16:59 67 18 156/91 95 Room Air 11/11/16 15:12 77 18 144/92 95 Room Air 11/11/16 14:06 71 18 141/80 91 Room Air Physical Exam Notes: General: no distress Eyes: normal inspection, PERLL Respiratory: chest non tender, clear to auscultation, normal breath sounds, no respiratory distress, no accessory muscle use Cardiac: regular rate and rhythm, no rub or gallop, no murmur, no edema, no jvd GI/: active bowel sounds, abdomen diffusely tender, soft, non distended Extremities: normal range of motion, normal strength, non tender Neuro/Psych: alert and oriented x 3, normal mood and affect Skin: normal color, dry Laboratory Results Last 24 Hours Test 11/12/16 04:44 White Blood Count 6.84 K/uL Red Blood Count 4.22 M/uL Hemoglobin 12.7 g/dL Hematocrit 37.7 % Mean Corpuscular Volume 89.3 fL Mean Corpuscular Hemoglobin 30.1 pg Mean Corpuscular Hemoglobin Concent 33.7 g/dl Platelet Count 280 K/uL Mean Platelet Volume 9.6 fL Neutrophils (%) (Auto) 55.2 % Lymphocytes (%) (Auto) 32.7 % Monocytes (%) (Auto) 7.9 % Eosinophils (%) (Auto) 3.5 % Basophils (%) (Auto) 0.6 % Neutrophils # (Auto) 3.77 K/uL Lymphocytes # (Auto) 2.24 K/uL Monocytes # (Auto) 0.54 K/uL Eosinophils # (Auto) 0.24 K/uL Basophils # (Auto) 0.04 K/uL RDW Standard Deviation 43.8 fL RDW Coefficient of Variation 13.4 % Immature Granulocyte % (Auto) 0.1 % Immature Granulocyte # (Auto) 0.01 K/uL Sodium Level 143 mmol/L Potassium Level 3.6 mmol/L Chloride Level 109 mmol/L Carbon Dioxide Level 27 mmol/L Anion Gap 7.0 mmol/L Blood Urea Nitrogen 9 mg/dl Creatinine 0.75 mg/dl Est Creatinine Clear Calc Drug Dose 90.2 ml/min Estimated GFR () 98.3 Estimated GFR (Non- 84.8 BUN/Creatinine Ratio 12.3 Random Glucose 108 mg/dl Calcium Level 8.3 mg/dl Assessment and Plan Ms. Miranda is a 61 year old woman here for diarrhea with possible syncopal event this morning. 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 Diarrhea/colitis - It is possible that the colitis is due to salmonella infection given that it has been persistent in her urine. Alternative etiologies include food poisoning or viral infection. She shows mild colitis on imaging. -C. diff negative, stool cultures pending, -antibiotics per ID - changed to Rocephin. Patient may need to go home with a PICC line. Will wait to see if BC grow anything before discussing PICC placement. - tolerating clears, diet advanced -NSS - morphine and toradol for pain Syncope - likely vagal event as it was associated with a bowel movement and diaphoresis. HTN - continue losartan DVT prophylaxis - SCDs Full resuscitation.
[2016-11-12 14:51] VITALS: BP 157/87; PULSE 63; TEMP 37; O2SAT 96
[2016-11-12] MEDS: KETOROLAC TROMETHAMINE 30 MG/ML VIAL IV PRN (23:17)
[2016-11-13] VITALS: BP 138/76; PULSE 70; TEMP 36.7; O2SAT 96
[2016-11-13] MEDS: METRONIDAZOLE 500 MG TAB PO SCH ×3 (05:39→21:42)
[2016-11-13] MEDS: ACETAMINOPHEN 325 MG TAB PO PRN ×3 (05:41→23:30)
[2016-11-13] MEDS: SODIUM CHLORIDE 0.9% 1000ML 1,000 ML IV SCH ×3 (07:06→23:27)
[2016-11-13 07:33] VITALS: BP 180/90; PULSE 63; TEMP 36.9; O2SAT 91
[2016-11-13] MEDS: LOSARTAN POTASSIUM 25 MG TAB PO SCH (07:51)
[2016-11-13] MEDS: CIPROFLOXACIN 500 MG TAB PO SCH (07:52)
[2016-11-13 08:00] VITALS: O2SAT 91
[2016-11-13 08:40] VITALS: O2SAT 91
--- NOTE | 2016-11-13 09:54 | Hospitalist Progress Note ---
Hospitalist Progress Note Date of Service Nov 13, 2016. Subjective Pt evaluation today including: conversation w/ patient, physical exam, chart review, lab review, review of inpatient medication list Voiding: no voiding problems Ms. Miranda had one incident of diarrhea over the night and has diffuse abdominal tenderness but no pain. She has some pain when her bladder is full but no burning with urination. She continues to feel better than she did when arriving at the emergency room. Constitutional: + problem reported (hot flashes), No fever Respiratory: No cough Cardiovascular: No chest pain Abdomen: + see HPI All Other Systems: Reviewed and Negative Medications Medications (Trade) Dose Ordered Sig/Matt Route Start Time Stop Time Status Last Admin Dose Admin Ketorolac Tromethamine (Toradol Inj) 30 mg Q6H PRN IV 11/12/16 13:00 11/17/16 12:59 11/12/16 23:17 30 MG Ketorolac Tromethamine (Toradol Inj) 30 mg NOW STAT IV 11/12/16 12:57 11/12/16 13:03 DC 11/12/16 13:12 30 MG Objective Vital Signs Date Time Temp Pulse Resp B/P (MAP) Pulse Ox O2 Delivery O2 Flow Rate FiO2 11/13/16 08:40 91 Room Air 11/13/16 07:33 36.9 63 19 180/90 (120) 91 Room Air 11/13/16 00:00 36.7 70 20 138/76 (96) 96 Room Air 11/12/16 23:20 Room Air 11/12/16 16:00 Room Air 11/12/16 14:51 37.0 63 18 157/87 (110) 96 Room Air Physical Exam Notes: General: no distress Eyes: normal inspection, PERLL Respiratory: chest non tender, clear to auscultation, normal breath sounds, no respiratory distress, no accessory muscle use Cardiac: regular rate and rhythm, no rub or gallop, no murmur, no edema, no jvd GI/: active bowel sounds, diffuse abd tenderness, soft, non distended Extremities: normal range of motion, normal strength, non tender Neuro/Psych: alert and oriented x 3, normal mood and affect Skin: normal color, dry Assessment and Plan Ms. Miranda is a 61 year old woman here for diarrhea with possible syncopal event this morning. 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 Diarrhea/colitis/UTI - It is possible that the colitis is due to salmonella infection given that it has been persistent in her urine. Alternative etiologies include food poisoning or viral infection. She shows mild colitis on imaging. -C. diff negative, stool cultures pending, BC pending -antibiotics per ID - changed to Rocephin. Flagyl continued. Patient may need to go home with a PICC line. Will wait 48 hours to see if BC grow anything before discussing PICC placement. - Tolerating regular diet -NSS - morphine and toradol for pain - Consulted urology - changed from observation to full admission Syncope - likely vagal event as it was associated with a bowel movement and diaphoresis. HTN - continue losartan DVT prophylaxis - SCDs Full resuscitation.
[2016-11-13] MEDS: CEFTRIAXONE SOD INJ 1 GM in DEXTROSE 5% ADD-VANTAGE 50ML 50 ML IV SCH (12:47)
[2016-11-13 15:06] VITALS: BP 143/82; PULSE 68; TEMP 36.6; O2SAT 95
--- NOTE | 2016-11-13 17:22 | Infectious Disease Progress Nt ---
Progress Note Date of Service Nov 13, 2016. Subjective Pt evaluation today including: conversation w/ patient, conversation w/ family , physical exam, chart review, lab review, review of studies, conversation w/ systems security consultant, review of inpatient medication list Abdominal pain slightly better, diarrhea slightly better, no fever. Blood cultures remain negative. No other new complaints. All Other Systems: Reviewed and Negative Medications Current Inpatient Medications Medications (Trade) Dose Ordered Sig/Matt Route Start Time Stop Time Status Last Admin Dose Admin Acetaminophen (Tylenol Tab) 650 mg Q4H PRN PO 11/11/16 15:30 12/11/16 15:29 11/13/16 11:50 650 MG Ondansetron HCl (Zofran Inj) 4 mg Q6H PRN IV 11/11/16 15:30 12/11/16 15:29 Morphine Sulfate (MoRPHine SULFATE INJ) 2 mg Q4H PRN IV 11/11/16 15:30 11/25/16 15:29 11/12/16 05:54 2 MG Sodium Chloride 1,000 ml @ 125 mls/hr Q8H IV 11/11/16 15:30 12/11/16 15:29 11/13/16 15:23 125 MLS/HR Metronidazole (Flagyl Tab) 500 mg Q8 PO 11/11/16 17:30 11/21/16 17:29 11/13/16 13:52 500 MG Lorazepam (Ativan Tab) 0.5 mg Q6H PRN PO 11/11/16 15:30 12/11/16 15:29 Losartan Potassium (coZAAR TAB) 25 mg DAILY PO 11/12/16 09:00 12/12/16 08:59 11/13/16 07:51 25 MG Miscellaneous (Iv Fluids Completed) 1 ea PRN PRN N/A 11/11/16 16:15 11/11/17 16:14 Ketorolac Tromethamine (Toradol Inj) 30 mg Q6H PRN IV 11/12/16 13:00 11/17/16 12:59 11/12/16 23:17 30 MG Ceftriaxone Sodium 1 gm/ Dextrose 50 ml @ 100 mls/hr Q24H IV 11/13/16 12:00 11/23/16 11:59 11/13/16 12:47 100 MLS/HR Objective Vital Signs Date Time Temp Pulse Resp B/P (MAP) Pulse Ox O2 Delivery O2 Flow Rate FiO2 11/13/16 16:08 Room Air 11/13/16 15:06 36.6 68 18 143/82 (102) 95 Room Air 11/13/16 08:40 91 Room Air 11/13/16 08:00 91 Room Air 11/13/16 07:33 36.9 63 19 180/90 (120) 91 Room Air 11/13/16 00:00 36.7 70 20 138/76 (96) 96 Room Air 11/12/16 23:20 Room Air Physical Exam General Appearance: WD/WN, no apparent distress Eyes: normal inspection, EOMI, sclerae normal ENT: normal ENT inspection, hearing grossly normal, pharynx normal Neck: supple, no adenopathy, thyroid normal, trachea midline Respiratory/Chest: lungs clear, normal breath sounds, no respiratory distress Cardiovascular: regular rate, rhythm, no gallop, no murmur Abdomen: normal bowel sounds, soft, no organomegaly, + tenderness Extremities: non-tender, no calf tenderness Neurologic/Psychiatric: alert, oriented x 3 Skin: normal color, warm/dry, no rash Lymphatic: no adenopathy Laboratory Results RUN DATE: 11/13/16 [facility] LAB PAGE 1 RUN TIME: 721 Specimen Inquiry PATIENT: BAL REGAN LOC: [id number] U # : [id number] AGE/SX: 61/F ROOM: [facility] REG : 11/11/[address]: Geovanni Nolen D.O. : 1955 BED: 1 DIS : STATUS: ADM [place] TLOC: SPEC #: [id number] MABLE: 11/12/16 STATUS: RES REQ #: [id number] RECD: 11/12/[address]: Hai Chang MD SOURCE: BLOOD ENTR: 11/12/[address]: Alex Davis M.D. SPDESC: No Doctor, Assigned ORDERED: BLOOD CULTURE Procedure Result Verified Site BLD CULT Preliminary 11/13/16 NO GROWTH TO DATE. Assessment and Plan Patient with urinary symptoms and salmonella in urine culture, not clearly responding to ciprofloxacin, with ongoing symptoms but negative urinalysis. CT scan suggests possibility of right renal infection. Although unusual to find urine cultures, urinary tract can be involved disseminated infection, but may also be found with patients with bacteremia. Blood cultures are negative, patient changed to ceftriaxone, will follow clinical response to determine whether patient needs to be continued on IV antibiotics. Will follow.
--- NOTE | 2016-11-13 23:16 | GENITOURINARY CONSULTATION ---
DATE OF CONSULTATION: 11/13/2016 REASON FOR THE CONSULT: History of Salmonella urinary tract infection and abdominal pain. HISTORY OF PRESENTATION: The patient is a 61-year-old female who first presented with a urinary tract infection that grew out Salmonella earlier in October. At that time, she was treated with antibiotics and then she had a recurrence of this UTI and she was seen by Dr. Ng in our office and placed on ciprofloxacin. She had significant dysuria at that time but appeared to be getting better until several days ago when she started to have severe abdominal pain and was admitted to the hospital on 11/11/2016 in the afternoon, had a CAT scan that showed some possible delay on the right side versus pyelonephritis of the right lower pole; however, her urine was completely clear and she denied having flank pain. She does have a thickened colon and some abdominal pain, has been seen by Dr. Chang who has started her on ceftriaxone which was one of the things that she was sensitive to on a previous culture. Since she was on Cipro and there were no sensitivities to that, it is unclear whether she was resistant to Cipro but she was resistant at that time to trimethoprim. She has been checked this admission for C. difficile and that is negative. A year ago she did have an episode of gross hematuria, that was evaluated and the only thing that was found was a small stone on the right side, a punctate stone that is no longer visible. There is no evidence of a stone obstructing the ureter at this time. She does have a history of acid reflux, hypertension, osteoarthritis, SVT and urinary tract infection. She does not smoke but she did in the distant past. MEDICATIONS: Include Cipro which she was taking and losartan upon admission, but currently she is taking IV ceftriaxone. Please refer to the review of systems. She was quite sick when she entered with abdominal pain and fever and still has mild abdominal pain. ALLERGIES: She has no known drug allergies. VITAL SIGNS: Currently stable. PHYSICAL EXAMINATION: GENERAL: Shows no flank pain to percussion. HEENT: Unremarkable. LUNGS: Within normal breathing pattern. CARDIAC: She has no significant peripheral edema. ABDOMEN: Somewhat tender but not rigid, in the midepigastric and below the epigastric area. EXTREMITIES: Otherwise unremarkable. NEUROLOGIC: She is alert and oriented without any focal or sensory deficits. ASSESSMENT: The patient appears to feel better with a normal white count, it was somewhat elevated upon admission. Urine is clear. She may have some evidence of pyelo which if she does not get better, would rescan her kidneys with IV contrast per radiology. She does have some small cysts which appear to have been there previously on a CAT scan on the right side as well, but at this point, I do not see any need for further intervention. She was to see Dr. Ng on Wednesday. She is going to reschedule that to see him toward the end of her course of antibiotics, think that her urine should be checked after she completes antibiotics, and again if she does get worse or develops flank pain, would reimage her with CT scan of her kidneys with IV contrast per radiology.
[2016-11-14] MEDS: KETOROLAC TROMETHAMINE 30 MG/ML VIAL IV PRN ×4 (03:44→22:43)
[2016-11-14] MEDS: METRONIDAZOLE 500 MG TAB PO SCH ×3 (05:39→21:48)
[2016-11-14 07:29] VITALS: BP_SYST 162; BP_SYST 174; BP_DIAS 101; BP_DIAS 98; PULSE 72; TEMP 36.8; O2SAT 95
[2016-11-14] MEDS: SODIUM CHLORIDE 0.9% 1000ML 1,000 ML IV SCH (07:32)
[2016-11-14] MEDS: LOSARTAN POTASSIUM 25 MG TAB PO SCH (07:32)
[2016-11-14] MEDS ORDERED: LOPERAMIDE HCL 2 MG CAP PO PRN (10:15)
[2016-11-14] MEDS ORDERED: HydrALAZINE HCL 20 MG/ML VIAL IV. PRN (10:15)
[2016-11-14] MEDS: CEFTRIAXONE SOD INJ 1 GM in DEXTROSE 5% ADD-VANTAGE 50ML 50 ML IV SCH (12:28)
[2016-11-14] MEDS: LACTOBACILLUS ACIDOPHILUS (FLORANEX) TAB PO SCH ×2 (12:47→16:23)
[2016-11-14] MEDS: PHENAZOPYRIDINE HCL 100 MG TAB PO PRN (12:47)
--- NOTE | 2016-11-14 15:53 | Progress Note ---
Subjective Date of Service: Nov 14, 2016. Subjective Pain: supra pubic discomfort but no dysuria not sure pt is emptyingve pt w diarrhea this am x 5 reported c diff negative earlier used toradol earlier Problem List Medical Problems: (1) Colitis Status: Acute (2) Diarrhea Status: Acute (3) Failure of outpatient treatment Status: Acute (4) Leukocytosis Status: Acute (5) Lower abdominal pain Status: Acute Objective Vital Signs Date Time Temp Pulse Resp B/P (MAP) Pulse Ox O2 Delivery O2 Flow Rate FiO2 11/14/16 08:17 Room Air 11/14/16 07:29 36.8 72 18 174/98 (123) 95 162/101 (121) 11/14/16 00:00 Room Air 11/13/16 16:08 Room Air Assessment and Plan check cath urine and measure residual
[2016-11-14 16:02] VITALS: BP 159/90; PULSE 72; TEMP 36.6; O2SAT 96
--- NOTE | 2016-11-14 16:31 | Progress Note ---
Subjective Date of Service: Nov 14, 2016. Subjective Pt evaluation today including: conversation w/ patient, physical exam, lab review, conversation w/ databases computer consultant, review of inpatient medication list Pain: intermittent severe lower abdominal pain PO Intake: adequate Voiding: no voiding problems patient had a good night, but then she voided and had severe pain, shooting lower abdomen stools still loose, low volume, 2-3 times a day discussed with Dr. Chang, recommends Rocephin 1mg IV daily x 14 days total discussed with patient, will add Pyridium for bladder pain, add Questran, Imodium and Lactinex for stools Problem List Medical Problems: (1) Colitis Status: Acute (2) Diarrhea Status: Acute (3) Failure of outpatient treatment Status: Acute (4) Leukocytosis Status: Acute (5) Lower abdominal pain Status: Acute Review of Systems Constitutional: + weakness, + fatigue Abdomen: + pain, + diarrhea Female : + dysuria, + urinary frequency All Other Systems: Reviewed and Negative Medications Current Inpatient Medications Medications (Trade) Dose Ordered Sig/Matt Route Start Time Stop Time Status Last Admin Dose Admin Acetaminophen (Tylenol Tab) 650 mg Q4H PRN PO 11/11/16 15:30 12/11/16 15:29 11/13/16 23:30 650 MG Ondansetron HCl (Zofran Inj) 4 mg Q6H PRN IV 11/11/16 15:30 12/11/16 15:29 Morphine Sulfate (MoRPHine SULFATE INJ) 2 mg Q4H PRN IV 11/11/16 15:30 11/25/16 15:29 11/12/16 05:54 2 MG Metronidazole (Flagyl Tab) 500 mg Q8 PO 11/11/16 17:30 11/21/16 17:29 11/14/16 13:42 500 MG Lorazepam (Ativan Tab) 0.5 mg Q6H PRN PO 11/11/16 15:30 12/11/16 15:29 Losartan Potassium (coZAAR TAB) 25 mg DAILY PO 11/12/16 09:00 12/12/16 08:59 11/14/16 07:32 25 MG Miscellaneous (Iv Fluids Completed) 1 ea PRN PRN N/A 11/11/16 16:15 11/11/17 16:14 Ketorolac Tromethamine (Toradol Inj) 30 mg Q6H PRN IV 11/12/16 13:00 11/17/16 12:59 11/14/16 16:19 30 MG Ceftriaxone Sodium 1 gm/ Dextrose 50 ml @ 100 mls/hr Q24H IV 11/13/16 12:00 11/23/16 11:59 11/14/16 12:28 100 MLS/HR Phenazopyridine HCl (Pyridium Tab) 100 mg TID PRN PO 11/14/16 10:15 12/14/16 10:14 11/14/16 12:47 100 MG Hydralazine HCl (HydrALAZINE INJ) 10 mg Q6H PRN IV. 11/14/16 10:15 12/14/16 10:14 Cholestyramine Resin (Questran Powder Light) 4 gm BID@ PO 11/14/16 22:00 12/14/16 21:59 Loperamide HCl (Imodium Cap) 2 mg Q6 PRN PO 11/14/16 10:15 12/14/16 10:14 Lactobacillus Acidophilus (Floranex Tab) 4 tab TIDM PO 11/14/16 12:00 12/14/16 11:59 11/14/16 16:23 4 TAB Objective Vital Signs Date Time Temp Pulse Resp B/P (MAP) Pulse Ox O2 Delivery O2 Flow Rate FiO2 11/14/16 16:02 36.6 72 16 159/90 (113) 96 11/14/16 08:17 Room Air 11/14/16 07:29 36.8 72 18 174/98 (123) 95 162/101 (121) 11/14/16 00:00 Room Air Physical Exam General Appearance: WD/WN, no apparent distress Eyes: normal inspection, EOMI, sclerae normal ENT: normal ENT inspection, hearing grossly normal, pharynx normal Neck: supple, no adenopathy, no JVD, trachea midline Respiratory/Chest: chest non-tender, lungs clear, normal breath sounds, no respiratory distress, no accessory muscle use Cardiovascular: regular rate, rhythm, no edema, no gallop, no JVD, no murmur Abdomen: normal bowel sounds, soft, no organomegaly, + tenderness (lower abdomen, no rebound or rigidity) Extremities: normal range of motion, non-tender, normal inspection, no pedal edema, no calf tenderness, pelvis stable Neurologic/Psychiatric: tele marketing executive II-XII nml as tested, no motor/sensory deficits, alert, normal mood/affect, oriented x 3 Skin: normal color, warm/dry, no rash Assessment and Plan - UTI, salmonella: recurrent with two separate cultures of 100k colonies however, most recent urine culture clean, but severe lower abdominal pain ID recommends treating with 14 days total of Rocephin IV, patient will need PICC still with bad pain today, continue Toradol, Pyridium added blood cultures negative, hold on echocardiogram at this point will consult urology for their recommendations, believe there is component of Pyelonephritis, recommend repeat CT and follow up in December - Colitis: continue Flagyl, C diff and stool cultures negative still with diarrhea today, add Questran, Imodium and Lactinex
[2016-11-14 18:05] LABS: URINE APPEARANCE CLEAR (CLEAR); URINE BILIRUBIN NEG (NEG); URINE COLOR DK YELLOW; URINE EPITHELIAL CELL AUTO 0-5 /lpf (0-5); URINE NITRITE POS (NEG); UROBILINOGEN NEG (NEG)
[2016-11-14 18:08] LABS: MANUAL MICROSCOPIC REQUIRED? NO; REVIEW REQ? NO
[2016-11-14] MEDS: CHOLESTYRAMINE LIGHT 4 GM PKT PO SCH (22:25)
[2016-11-15 00:42] VITALS: BP 166/84; PULSE 61; TEMP 36.8; O2SAT 94
[2016-11-15] MEDS: METRONIDAZOLE 500 MG TAB PO SCH ×3 (05:57→21:37)
[2016-11-15 07:46] VITALS: BP 136/87; PULSE 67; TEMP 36.7; O2SAT 97
[2016-11-15] MEDS: LACTOBACILLUS ACIDOPHILUS (FLORANEX) TAB PO SCH ×3 (08:35→17:56)
[2016-11-15] MEDS: LOSARTAN POTASSIUM 25 MG TAB PO SCH (08:35)
[2016-11-15] MEDS: PHENAZOPYRIDINE HCL 100 MG TAB PO PRN ×2 (08:35→22:21)
[2016-11-15] MEDS: CHOLESTYRAMINE LIGHT 4 GM PKT PO SCH ×2 (09:36→21:38)
[2016-11-15] MEDS: CEFTRIAXONE SOD INJ 1 GM in DEXTROSE 5% ADD-VANTAGE 50ML 50 ML IV SCH (12:39)
[2016-11-15] MEDS: ACETAMINOPHEN 325 MG TAB PO PRN (12:39)
--- NOTE | 2016-11-15 14:31 | Progress Note ---
Subjective Date of Service: Nov 15, 2016. Subjective Pt evaluation today including: conversation w/ patient, conversation w/ family , physical exam, lab review, review of studies Pain: still mild pain in suprapubic area not requiring narcotics pt with suprapubic discomfort not requiring narcotics emptying bladder and cath u/a negative except positive for nitrates of uncertain if any significance Problem List Medical Problems: (1) Colitis Status: Acute (2) Diarrhea Status: Acute (3) Failure of outpatient treatment Status: Acute (4) Leukocytosis Status: Acute (5) Lower abdominal pain Status: Acute Objective Vital Signs Date Time Temp Pulse Resp B/P (MAP) Pulse Ox O2 Delivery O2 Flow Rate FiO2 11/15/16 08:19 Room Air 11/15/16 07:46 36.7 67 16 136/87 (103) 97 11/15/16 00:42 36.8 61 18 166/84 (111) 94 11/15/16 00:00 Room Air 11/14/16 16:02 36.6 72 16 159/90 (113) 96 11/14/16 16:00 Room Air Laboratory Results Last 24 Hours Test 11/14/16 17:45 Urine Color DK YELLOW Urine Appearance CLEAR Urine pH 7.0 Urine Specific [place] 1.010 Urine Protein NEG Urine Glucose (UA) NEG Urine Ketones NEG Urine Occult Blood NEG Urine Nitrite POS Urine Bilirubin NEG Urine Urobilinogen NEG Urine Leukocyte Esterase NEG Urine WBC (Auto) 0 /hpf Urine RBC (Auto) 0-4 /hpf Urine Hyaline Casts (Auto) 0 /lpf Urine Epithelial Cells (Auto) 0-5 /lpf Urine Bacteria (Auto) NEG Assessment and Plan have pt f/u w Dr. Ng at end of her course of antibiotics
[2016-11-15 15:34] VITALS: BP 152/85; PULSE 77; TEMP 36.6; O2SAT 93
--- NOTE | 2016-11-15 17:55 | Progress Note ---
Subjective Date of Service: Nov 15, 2016. Subjective Patient reports having one of her best days. Patient is concerned though that she may have wrosening of her pain given that she has improved in the past in which her improvement have been short lived. Today she states that her suprapubic pain is 4/10. Problem List Medical Problems: (1) Colitis Status: Acute (2) Diarrhea Status: Acute (3) Failure of outpatient treatment Status: Acute (4) Leukocytosis Status: Acute (5) Lower abdominal pain Status: Acute Review of Systems Constitutional: No fever, No chills Respiratory: No cough, No sputum Cardiac: No chest pain, No orthopnea Abdomen: + pain, No nausea, No constipation Neurologic: No memory loss, No paralysis Psychiatric: No depression symptoms, No anhedonism All Other Systems: Reviewed and Negative Medications Current Inpatient Medications Medications (Trade) Dose Ordered Sig/Matt Route Start Time Stop Time Status Last Admin Dose Admin Acetaminophen (Tylenol Tab) 650 mg Q4H PRN PO 11/11/16 15:30 12/11/16 15:29 11/15/16 12:39 650 MG Ondansetron HCl (Zofran Inj) 4 mg Q6H PRN IV 11/11/16 15:30 12/11/16 15:29 Morphine Sulfate (MoRPHine SULFATE INJ) 2 mg Q4H PRN IV 11/11/16 15:30 11/25/16 15:29 11/12/16 05:54 2 MG Metronidazole (Flagyl Tab) 500 mg Q8 PO 11/11/16 17:30 11/21/16 17:29 11/16/16 06:24 500 MG Lorazepam (Ativan Tab) 0.5 mg Q6H PRN PO 11/11/16 15:30 12/11/16 15:29 Losartan Potassium (coZAAR TAB) 25 mg DAILY PO 11/12/16 09:00 12/12/16 08:59 11/15/16 08:35 25 MG Miscellaneous (Iv Fluids Completed) 1 ea PRN PRN N/A 11/11/16 16:15 11/11/17 16:14 Ketorolac Tromethamine (Toradol Inj) 30 mg Q6H PRN IV 11/12/16 13:00 11/17/16 12:59 11/15/16 23:02 30 MG Ceftriaxone Sodium 1 gm/ Dextrose 50 ml @ 100 mls/hr Q24H IV 11/13/16 12:00 11/23/16 11:59 11/15/16 12:39 100 MLS/HR Phenazopyridine HCl (Pyridium Tab) 100 mg TID PRN PO 11/14/16 10:15 12/14/16 10:14 11/16/16 06:24 100 MG Hydralazine HCl (HydrALAZINE INJ) 10 mg Q6H PRN IV. 11/14/16 10:15 12/14/16 10:14 Cholestyramine Resin (Questran Powder Light) 4 gm BID@10, PO 11/14/16 22:00 12/14/16 21:59 11/14/16 22:25 4 GM Loperamide HCl (Imodium Cap) 2 mg Q6 PRN PO 11/14/16 10:15 12/14/16 10:14 11/14/16 18:50 2 MG Lactobacillus Acidophilus (Floranex Tab) 4 tab TIDM PO 11/14/16 12:00 12/14/16 11:59 11/15/16 17:56 4 TAB Objective Vital Signs Date Time Temp Pulse Resp B/P (MAP) Pulse Ox O2 Delivery O2 Flow Rate FiO2 11/15/16 15:34 36.6 77 18 152/85 (107) 93 Room Air 11/15/16 08:19 Room Air 11/15/16 07:46 36.7 67 16 136/87 (103) 97 11/15/16 00:42 36.8 61 18 166/84 (111) 94 11/15/16 00:00 Room Air Physical Exam General Appearance: WD/WN, no apparent distress Neck: supple, no adenopathy Respiratory/Chest: chest non-tender, lungs clear, normal breath sounds Cardiovascular: regular rate, rhythm, no edema, no gallop Abdomen: normal bowel sounds, soft (tenderness to mid suprapubic region) Extremities: non-tender, normal inspection Skin: normal color, warm/dry Assessment and Plan - UTI, 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 Ng toward the end of her course of antibiotics, think that her urine should be checked after she completes antibiotics, and again if she does get worse or develops flank pain, would reimage her with CT scan of her kidneys with IV contrast per radiology. - Colitis: continue Flagyl, C diff and stool cultures negative still with diarrhea today, add Questran, Imodium and Lactinex Continued [facility] stay due to: multiple IV medications needed Discharge planning: home with IV medication
[2016-11-15] MEDS: KETOROLAC TROMETHAMINE 30 MG/ML VIAL IV PRN (23:02)
[2016-11-16 00:19] VITALS: BP 151/79; PULSE 63; TEMP 36.7; O2SAT 95
[2016-11-16] MEDS: METRONIDAZOLE 500 MG TAB PO SCH ×2 (06:24→13:26)
[2016-11-16] MEDS: PHENAZOPYRIDINE HCL 100 MG TAB PO PRN (06:24)
[2016-11-16 07:20] VITALS: BP 131/85; PULSE 72; TEMP 36.4; O2SAT 95
--- NOTE | 2016-11-16 08:20 | Progress Note ---
Subjective Date of Service: Nov 16, 2016. Subjective Pt evaluation today including: conversation w/ patient, chart review, lab review Voiding: no voiding problems 61 yo female admitted with salmonella UTI. Pt tearful this morning, and upset she has been dealing with this for 39 days. She states that she had episodes of bladder pain overnight, and was not aware she need to ask for Pyridium. Pyridium is helpful for the pain she states. Problem List Medical Problems: (1) Colitis Status: Acute (2) Diarrhea Status: Acute (3) Failure of outpatient treatment Status: Acute (4) Leukocytosis Status: Acute (5) Lower abdominal pain Status: Acute Review of Systems Constitutional: No fever, No chills Respiratory: No shortness of breath Cardiac: No chest pain Abdomen: No pain, No nausea, No vomiting Female : No dysuria, No hematuria Heme: No abnormal bleeding/bruising Objective Vital Signs Date Time Temp Pulse Resp B/P (MAP) Pulse Ox O2 Delivery O2 Flow Rate FiO2 11/16/16 07:20 36.4 72 18 131/85 (100) 95 11/16/16 00:19 36.7 63 18 151/79 (103) 95 Room Air 11/16/16 00:00 Room Air 11/15/16 20:00 Room Air 11/15/16 15:40 Room Air 11/15/16 15:34 36.6 77 18 152/85 (107) 93 Room Air 11/15/16 08:19 Room Air Physical Exam General Appearance: + moderate distress (pt crying and upset this morning ) Eyes: normal inspection ENT: hearing grossly normal Neck: no JVD Respiratory/Chest: no respiratory distress, no accessory muscle use Cardiovascular: no JVD Extremities: normal inspection Neurologic/Psychiatric: alert, normal mood/affect, oriented x 3 Skin: normal color Assessment and Plan A/P: Salmonella UTI AFVSS. Management of UTI per Dr. Chang. Will increase her Pyridium to 200mg TID for better pain control. Would consider adding an anti-inflammatory such as Mobic as an outpatient for pain control as well? She is to f/u with Dr. Ng on 12-08. Will continue to follow along with primary service. Continued [facility] stay due to: multiple IV medications needed Discharge planning: home with IV medication
[2016-11-16] MEDS: LOSARTAN POTASSIUM 25 MG TAB PO SCH (08:31)
[2016-11-16] MEDS: LACTOBACILLUS ACIDOPHILUS (FLORANEX) TAB PO SCH ×3 (08:31→17:03)
[2016-11-16] MEDS: PHENAZOPYRIDINE HCL 200 MG TAB PO SCH ×2 (08:32→13:26)
[2016-11-16] MEDS: KETOROLAC TROMETHAMINE 30 MG/ML VIAL IV PRN ×2 (08:33→15:45)
[2016-11-16] MEDS: CHOLESTYRAMINE LIGHT 4 GM PKT PO SCH (10:00)
[2016-11-16] MEDS: CEFTRIAXONE SOD INJ 1 GM in DEXTROSE 5% ADD-VANTAGE 50ML 50 ML IV SCH (12:31)
[2016-11-16] MEDS ORDERED: NURSING VERBAL MED ORDER ONE (13:00)
--- NOTE | 2016-11-16 15:04 | Infectious Disease Progress Nt ---
Progress Note Date of Service Nov 16, 2016. Subjective Pt evaluation today including: conversation w/ patient, conversation w/ family , physical exam, chart review, lab review, review of studies, conversation w/ hr business partner consultant, review of inpatient medication list Patient complaining of nausea, otherwise feeling better. Afebrile thus far today. No new complaints. Tolerating antibiotic without apparent difficulty.Blood cultures remain negative All Other Systems: Reviewed and Negative Medications Current Inpatient Medications Medications (Trade) Dose Ordered Sig/Matt Route Start Time Stop Time Status Last Admin Dose Admin Acetaminophen (Tylenol Tab) 650 mg Q4H PRN PO 11/11/16 15:30 12/11/16 15:29 11/15/16 12:39 650 MG Ondansetron HCl (Zofran Inj) 4 mg Q6H PRN IV 11/11/16 15:30 12/11/16 15:29 Morphine Sulfate (MoRPHine SULFATE INJ) 2 mg Q4H PRN IV 11/11/16 15:30 11/25/16 15:29 11/12/16 05:54 2 MG Metronidazole (Flagyl Tab) 500 mg Q8 PO 11/11/16 17:30 11/21/16 17:29 11/16/16 13:26 500 MG Lorazepam (Ativan Tab) 0.5 mg Q6H PRN PO 11/11/16 15:30 12/11/16 15:29 Losartan Potassium (coZAAR TAB) 25 mg DAILY PO 11/12/16 09:00 12/12/16 08:59 11/16/16 08:31 25 MG Miscellaneous (Iv Fluids Completed) 1 ea PRN PRN N/A 11/11/16 16:15 11/11/17 16:14 Ketorolac Tromethamine (Toradol Inj) 30 mg Q6H PRN IV 11/12/16 13:00 11/17/16 12:59 11/16/16 08:33 30 MG Ceftriaxone Sodium 1 gm/ Dextrose 50 ml @ 100 mls/hr Q24H IV 11/13/16 12:00 11/23/16 11:59 11/16/16 12:31 100 MLS/HR Hydralazine HCl (HydrALAZINE INJ) 10 mg Q6H PRN IV. 11/14/16 10:15 12/14/16 10:14 Loperamide HCl (Imodium Cap) 2 mg Q6 PRN PO 11/14/16 10:15 12/14/16 10:14 11/14/16 18:50 2 MG Lactobacillus Acidophilus (Floranex Tab) 4 tab TIDM PO 11/14/16 12:00 12/14/16 11:59 11/16/16 12:31 4 TAB Phenazopyridine HCl (Pyridium Tab) 200 mg TID PO 11/16/16 09:00 12/16/16 08:59 11/16/16 13:26 200 MG Objective Vital Signs Date Time Temp Pulse Resp B/P (MAP) Pulse Ox O2 Delivery O2 Flow Rate FiO2 11/16/16 09:21 Room Air 11/16/16 07:20 36.4 72 18 131/85 (100) 95 11/16/16 00:19 36.7 63 18 151/79 (103) 95 Room Air 11/16/16 00:00 Room Air 11/15/16 20:00 Room Air 11/15/16 15:40 Room Air 11/15/16 15:34 36.6 77 18 152/85 (107) 93 Room Air Physical Exam General Appearance: WD/WN, no apparent distress Eyes: normal inspection, EOMI, sclerae normal ENT: normal ENT inspection, pharynx normal Neck: supple, no adenopathy, thyroid normal, trachea midline Respiratory/Chest: chest non-tender, lungs clear, normal breath sounds, no respiratory distress Cardiovascular: regular rate, rhythm, no gallop, no murmur Abdomen: normal bowel sounds, non tender, soft, no organomegaly Extremities: non-tender, no calf tenderness Neurologic/Psychiatric: alert, oriented x 3 Skin: normal color, no rash Lymphatic: no adenopathy Laboratory Results RUN DATE: 11/13/16 [facility] LAB PAGE 1 RUN TIME: 721 Specimen Inquiry PATIENT: BAL REGAN LOC: [id number] U # : [id number] AGE/SX: 61/F ROOM: W261 REG : 11/11/[address]: Geovanni Nolen D.OChantal : 1955 BED: 1 DIS : STATUS: ADM Gaviota TLOC: SPEC #: [id number] MABLE: 11/12/16 STATUS: RES REQ #: [id number] RECD: 11/12/[address]: Hai Chang MD SOURCE: BLOOD ENTR: 11/12/[address]: Alex Davis M.D. SPDESC: No Doctor, Assigned ORDERED: BLOOD CULTURE Procedure Result Verified Site BLD CULT Preliminary 11/13/16 NO GROWTH TO DATE. Assessment and Plan Patient with urinary symptoms and salmonella in urine culture, not clearly responding to ciprofloxacin, with ongoing symptoms but negative urinalysis. CT scan suggests possibility of right renal infection. Although unusual to find urine cultures, urinary tract can be involved disseminated infection, but may also be found with patients with bacteremia. Blood cultures are negative, patient changed to ceftriaxone, will require total of 14 days of therapy. Outpatient therapy being arranged.
[2016-11-16 15:52] VITALS: BP 174/98; PULSE 73; TEMP 36.3; O2SAT 95
[2016-11-16] MEDS ORDERED: LCTX PO (16:39)
[2016-11-16] MEDS ORDERED: IMD2X PO (16:39)
[2016-11-16] MEDS ORDERED: PHEN-1043 PO (16:39)
--- NOTE | 2016-11-16 16:43 | Discharge Instructions ---
Discharge Instructions Date of Service Nov 16, 2016. Admission Reason for Admission: Colitis Discharge Discharge Diagnosis / Problem: UTI with salmonella in urine culture Discharge Goals Goal(s): Decrease discomfort, Improve function Activity Recommendations Activity Limitations: resume your previous activity . Instructions / Follow-Up Instructions / Follow-Up F/U with Dr. Ng as an outpatient when antbiotics are done F/U with PCP in 1-2 weeks Current Hospital Diet Patient's current hospital diet: Regular Diet Discharge Diet Recommended Diet: Regular Diet Pending Studies Studies pending at discharge: no Medical Emergencies . Who to Call and When: Medical Emergencies: If at any time you feel your situation is an emergency, please call 911 immediately. . Non-Emergent Contact Non-Emergency issues call your: Primary Care Provider, Urologist Call Non-Emergent contact if: your pain is worsening . . "Provider Documentation" section prepared by Corey Ledezma. . Lens Fabricating Machine Tender Recommendations Lens Fabricating Machine Tender Recommendations: Continue with IV antibiotics for 10 more days. F/U with Dr. Ng as an outpatient once antibiotics have been completed. VTE Core Measure Inpt VTE Proph given/why not?: Venkat Goodwin
[2016-11-16 16:50] VITALS: BP 174/98; PULSE 73; TEMP 36.3; O2SAT 95
--- NOTE | 2016-11-17 05:51 | Discharge Summary ---
Discharge Summary Date of Service Nov 17, 2016. 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 Ng toward the end of her course of antibiotics, think that her urine should be checked after she completes antibiotics, and again if she does get worse or develops flank pain, would reimage her with CT scan of her kidneys with IV contrast per radiology. - Colitis: continue Flagyl, C diff and stool cultures negative still with diarrhea today, add Questran, Imodium and Lactinex This includes examination of the patient, discharge planning, medication reconciliation, and communication with other providers. Discharge Instructions Please refer to the electronic Patient Visit Report (Discharge Instructions) for additional information.
== END 2016-11-16 17:23 | disposition home health service (06) | DRG 392 ==
LOC: C.EDB 07:35 → C.MS2W 15:50 → ENRESERV 15:59 → OBSVTOIN 11-13 09:38
PROVIDERS: ADMIT Internal Medicine; ATTEND Internal Medicine
DX: K52.9 Noninfective gastroenteritis and colitis, unspecified (principal); N39.0 Urinary tract infection, site not specified; I10 Essential (primary) hypertension; K21.9 Gastro-esophageal reflux disease without esophagitis; M19.90 Unspecified osteoarthritis, unspecified site; R55 Syncope and collapse; D72.829 Elevated white blood cell count, unspecified; Z91.19 Patient's noncompliance with other medical treatment and regimen; Z80.9 Family history of malignant neoplasm, unspecified; Z82.49 Family history of ischemic heart disease and other diseases of the circulatory system

== ENCOUNTER → 2016-11-23 | Outpatient (CLI) | payer BC ==
[~2016-11-23] MED LIST changes: +IMD2X PO; -LANS30CA12 PO; +LCTX PO; +LOSA1TAB PO; -LRT5 PO; +PHEN-1043 PO
[2016-11-23 10:46] LABS: BASO % 1.2 %; BASO ABS # 0.09 K/uL (0-0.2); COMPLETE YES; EOS % 4.7 %; HEMATOCRIT 38.5 % (37-47); LYMPH % 31.4 %; LYMPH ABS # 2.27 K/uL (1.2-3.4); MEAN CELL VOLUME 89.5 fL (80-100); MEAN CORPUSCULAR HEMOGLOBIN 29.1 pg (25-34); MEAN CORPUSCULAR HGB CONC 32.5 g/dl (32-36); MEAN PLATELET VOLUME 9.8 fL (7.4-10.4); NEUT % 53.7 %; PLATELET COUNT 358 K/uL (130-400); WHITE BLOOD COUNT 7.24 K/uL (4.8-10.8)
[2016-11-23 10:57] LABS: ALT/SGPT 39 U/L (12-78); AST/SGOT 16 U/L (15-37); BLOOD UREA NITROGEN 20 mg/dl (7-18); BUN/CREATININE RATIO 25.9 (10-20); CALCIUM 8.9 mg/dl (8.5-10.1); CARBON DIOXIDE 29 mmol/L (21-32); CHLORIDE 105 mmol/L (98-107); CREATININE 0.78 mg/dl (0.60-1.20); GLUCOSE 113 mg/dl (70-99); POTASSIUM 3.6 mmol/L (3.5-5.1); SODIUM 142 mmol/L (136-145)
[2016-11-23 10:59] LABS: ALB/GLOB RATIO 1.1 (0.9-2); ALKALINE PHOSPHATASE 88 U/L (45-117)
[2016-11-23 11:03] LABS: BLOOD UREA NITROGEN 20 mg/dl (7-18); BUN/CREATININE RATIO 26.7 (10-20); CREATININE 0.76 mg/dl (0.60-1.20)
== END | disposition home or self-care (01) ==
LOC: C.LABSPEC 10:30
PROVIDERS: ATTEND Internal Medicine Infectious Disease
DX: N39.0 Urinary tract infection, site not specified (principal); R30.0 Dysuria

== ENCOUNTER → 2016-11-27 | Outpatient (CLI) | payer BC ==
[~2016-11-27] MED LIST changes: +OPTIRAY 300 IV PRN
--- NOTE | 2016-11-27 15:05 | DIAGNOSTIC IMAGING REPORT ---
IVP CLINICAL HISTORY: Urinary tract infection. Kidney stones. Hematuria. COMPARISON STUDY: CT of the abdomen and pelvis November 11, 2016. TECHNIQUE: Initially, a inorganic chemistry teacher KUB was obtained. An intravenous pyelogram was then performed following intravenous injection of 100 cc of Optiray 300. FINDINGS: No calculi are identified on the inorganic chemistry teacher KUB. Both nephrograms are symmetric. There is no hydronephrosis or hydroureter. No filling defects are identified within the upper tracts. Ureters appear unremarkable. Bladder is suboptimally assessed utilizing this technique but no abnormalities are identified. No significant post void residual is present. IMPRESSION: Unremarkable IVP. No hydronephrosis. No calculi identified. Electronically signed by: Oz Kyle M.D. 11/27/2016 3:03 PM Dictated Date/Time: 11/27/2016 2:51 PM
== END | disposition home or self-care (01) ==
LOC: C.RAD 12:31
PROVIDERS: ATTEND Urology
DX: K57.30 Diverticulosis of large intestine without perforation or abscess without bleeding (principal); N20.0 Calculus of kidney; N39.0 Urinary tract infection, site not specified; R31.9 Hematuria, unspecified

== ENCOUNTER → 2016-11-30 | Outpatient (CLI) | payer BC ==
[~2016-11-30] MED LIST changes: +CALC-51 PO; +CPR/500 PO; +MISCCAP80 PO; +MULT-506 PO; +OMEG10007 PO; -OPTIRAY 300 IV PRN; +VITAMIN B12 PO; +VITAMIN D3 PO; +ZINC PO
[2016-11-30 10:57] LABS: BASO % 2.8 %; BASO ABS # 0.16 K/uL (0-0.2); COMPLETE YES; EOS % 6.1 %; HEMATOCRIT 36.4 % (37-47); IG% 0.2 %; LYMPH % 33.7 %; LYMPH ABS # 1.93 K/uL (1.2-3.4); MEAN CELL VOLUME 87.7 fL (80-100); MEAN CORPUSCULAR HEMOGLOBIN 30.4 pg (25-34); MEAN CORPUSCULAR HGB CONC 34.6 g/dl (32-36); MEAN PLATELET VOLUME 9.8 fL (7.4-10.4); MONO % 9.4 %; NEUT % 47.8 %; PLATELET COUNT 305 K/uL (130-400); RED BLOOD COUNT 4.15 M/uL (4.2-5.4); WHITE BLOOD COUNT 5.72 K/uL (4.8-10.8)
[2016-11-30 11:08] LABS: ALB/GLOB RATIO 1.3 (0.9-2); ALT/SGPT 25 U/L (12-78); AST/SGOT 13 U/L (15-37); BLOOD UREA NITROGEN 13 mg/dl (7-18); BUN/CREATININE RATIO 18.7 (10-20); CALCIUM 8.7 mg/dl (8.5-10.1); CARBON DIOXIDE 28 mmol/L (21-32); CHLORIDE 106 mmol/L (98-107); CREATININE 0.71 mg/dl (0.60-1.20); GLUCOSE 97 mg/dl (70-99); POTASSIUM 3.4 mmol/L (3.5-5.1); SODIUM 141 mmol/L (136-145)
[2016-11-30 11:09] LABS: ALKALINE PHOSPHATASE 92 U/L (45-117)
== END | disposition home or self-care (01) ==
LOC: C.LABSPEC 10:43
PROVIDERS: ATTEND Internal Medicine Infectious Disease
DX: N39.0 Urinary tract infection, site not specified (principal)

== ENCOUNTER → 2016-12-30 | Day surgery (SDC) | payer BC ==
[2016-12-16 15:41] VITALS: Ht 172.7 cm; Wt 87.3 kg
[~2016-12-30] VITALS: Ht 172.7 cm; Wt 87.3 kg
[~2016-12-30] MED LIST changes: -IMD2X PO; -LCTX PO; +LIDOCAINE HCL 2% 2 ML VIAL (20MG/ML) ONE; -PHEN-1043 PO; +PROPOFOL IV EMULSION 10 MG/ML 20 ML VIAL IV ONE
--- NOTE | 2016-12-30 08:53 | Endo History and Physical ---
History & Physical Date of Service: Dec 30, 2016. Chief Complaint: abnormal CT of abdomen Referring Physician: Dr. Galloway History of Present Illness 61 yo CF who presents for colonoscopy secondary to abnormal CT scan of the abdomen. Past Surgical History Hx Cardiac Surgery: No Hx Internal Defibrillator: No Hx Pacemaker: No Hx Abdominal Surgery: No Hx of Implantable Prosthesis: No Hx Post-Op Nausea and Vomiting: No Hx Cancer Surgery: No Hx Thoracic Surgery: No Hx Orthopedic: Yes (RT SHOULDER ARTHROSCOPY, RT WRIST X 3, CERVICAL DISCECTOMY) Hx Urinary Tract Surgery: Yes (FEMALE CLAMPS FOR FERTILIZATION) Family History Colon CA Social History Smoking Status: Never Smoker Hx Substance Use: No Hx Alcohol Use: Yes (OCCASIONALLY) Allergies Coded Allergies: No Known Allergies (Verified , 12/30/16) Current Medications Reported Home Medications Medications Dose Route/Sig Max Daily Dose Days Date Category [Zinc] 1 Tab PO QAM 12/16/16 Reported [Vitamin D3] 1 Tab PO QAM 12/16/16 Reported [Vitamin B12] 1 Tab PO QAM 12/16/16 Reported Probiotic (Probiotic Product) 1 Cap Cap 1 Cap PO QAM 12/16/16 Reported Multivitamin (Multivitamins) Tab 1 Tab PO QAM 12/16/16 Reported [place]-3 (Fish Oil) 1 Ea Cap 1 Cap PO QAM 12/16/16 Reported [Calcium] 1 Tab PO QAM 12/16/16 Reported Cozaar (Losartan Potassium) 25 Mg Tab 1 Tab PO QAM 30 11/11/16 Reported Vital Signs Weight (Kilograms): 87.27 Height (Feet): 5 Height (Inches): 8 Date Time Temp Pulse Resp B/P (MAP) Pulse Ox O2 Delivery O2 Flow Rate FiO2 12/30/16 08:36 36.5 79 20 164/78 (106) 97 Room Air Physical Exam General Appearance: WD/WN, no apparent distress Respiratory/Chest: Auscultation: breath sounds normal Cardiovascular: Heart Auscultation: RRR Abdomen: Bowel Sounds: normal Inspection & Palpation: soft, non-distended, no tenderness, guarding & rebound Assessment and Plan Assessment: 61 yo CF who presents for colonoscopy secondary to abnormal CT scan of the abdomen. Plan: Proceed with colonoscopy.
--- NOTE | 2016-12-30 09:42 | Discharge Instructions ---
Endoscopy Patient Instructions Date / Procedure(s) Performed Dec 30, 2016. Colonoscopy Allergy Information Coded Allergies: No Known Allergies (Verified , 12/30/16) Discharge Date / Findings Dec 30, 2016. Diverticulosis Internal hemorrhoids Medication Instructions Resume all medications today as prescribed Reported Home Medications Medications Dose Route/Sig Max Daily Dose Days Date Category [Zinc] 1 Tab PO QAM 12/16/16 Reported [Vitamin D3] 1 Tab PO QAM 12/16/16 Reported [Vitamin B12] 1 Tab PO QAM 12/16/16 Reported Probiotic (Probiotic Product) 1 Cap Cap 1 Cap PO QAM 12/16/16 Reported Multivitamin (Multivitamins) Tab 1 Tab PO QAM 12/16/16 Reported [place]-3 (Fish Oil) 1 Ea Cap 1 Cap PO QAM 12/16/16 Reported [Calcium] 1 Tab PO QAM 12/16/16 Reported Cozaar (Losartan Potassium) 25 Mg Tab 1 Tab PO QAM 30 11/11/16 Reported Provider Instructions Activity Restrictions - No exercising or heavy lifting for 24 hours. - Do not drink alcohol the day of the procedure. - Do not drive a car or operate machinery until the day after the procedure. - Do not make any important decisions or sign important papers in 24 hours after the procedure. Following Day: - Return to full activity which may include returning to work/school. Diet Start your diet with liquids and light foods (jello, soup, juice, toast). Then eat your usual diet if not nauseated. Treatment For Common After Affects For mild abdominal pain, bloating, or excessive gas: - Rest - Eat lightly - Lie on right side Follow-Up Information Follow-up with Dr. Galloway as scheduled Anesthesia Information What You Should Know You have had a procedure that required some medicine to reduce anxiety and discomfort. This treatment is called moderate sedation. After receiving the treatment, you may be sleepy, but you will be able to breathe on your own. The effects of the treatment may last for several hours. Follow these instructions along with Activity/Diet recommendations noted above: * Do NOT do anything where dizziness or clumsiness would be dangerous. * Rest quietly at home today, then you can be up and about tomorrow. * Have a responsible person stay with you the rest of today. * You may have had an I.V. today. If so, you may take the dressing off later today. Recommendations Call your doctor if: * Trouble breathing * Continuous vomiting for more than 24 hours * Temperature above 101 degrees * Severe abdominal pain or bloating * Pain not relieved by pain medicine ordered * There is increased drainage or redness from any incision * A large amount of rectal bleeding greater than 2-3 tablespoons. (If you had a polyp/s removed or have hemorrhoids, a small amount of blood - from the rectum is to be expected.) * You have any unanswered questions or concerns. IN THE EVENT OF A SERIOUS EMERGENCY, GO TO THE NEAREST EMERGENCY ROOM Your discharge instructions were prepared by provider Bryan Trinidad. Patient Instructions Signature Page Azalia Miranda Patient (or Guardian) Signature/Date: I have read and understand the instructions given to me by my caregivers. Caregiver/RN/Doctor Signature/Date: The above-named patient and/or guardian has received patient instructions on this date. + Original Patient Signature Page (only) stays with chart. Please make copy for patient.
--- NOTE | 2016-12-30 10:01 | Anesthesiology Progress Note ---
Anesthesia Post Op Note Date & Time Dec 30, 2016 at 10:01 Vital Signs Pain Intensity: 0 Vital Signs Past 12 Hours Date Time Temp Pulse Resp B/P (MAP) Pulse Ox O2 Delivery O2 Flow Rate FiO2 12/30/16 09:40 74 20 141/78 (99) 96 Room Air 12/30/16 08:36 36.5 79 20 164/78 (106) 97 Room Air Notes Mental Status: alert / awake / arousable, participated in evaluation Pt Amnestic to Procedure: Yes Nausea / Vomiting: adequately controlled Pain: adequately controlled Airway Patency, RR, SpO2: stable & adequate BP & HR: stable & adequate Hydration State: stable & adequate Anesthetic Complications: no major complications apparent
[2016-12-30 10:14] VITALS: BP 136/92; PULSE 71; O2SAT 96
--- NOTE | 2016-12-30 10:33 | GI REPORT ---
Procedure Date: 12/30/2016 8:26 AM Procedure: Colonoscopy Indications: Abnormal CT of the GI tract Medicines: Monitored Anesthesia Care Complications: No immediate complications. Estimated Blood Loss: Estimated blood loss: none. Procedure: Pre-Anesthesia Assessment: - Prior to the procedure, a History and Physical was performed, and patient medications and allergies were reviewed. The patient's tolerance of previous anesthesia was also reviewed. The risks and benefits of the procedure and the sedation options and risks were discussed with the patient. All questions were answered, and informed consent was obtained. Prior Anticoagulants: The patient has taken no previous anticoagulant or antiplatelet agents. ASA Grade Assessment: II - A patient with mild systemic disease. After reviewing the risks and benefits, the patient was deemed in satisfactory condition to undergo the procedure. After I obtained informed consent, the scope was passed under direct vision. Throughout the procedure, the patient's blood pressure, pulse, and oxygen saturations were monitored continuously. The Scope was introduced through the anus and advanced to the terminal ileum. The colonoscopy was performed without difficulty. The patient tolerated the procedure well. The quality of the bowel preparation was good. The terminal ileum, ileocecal valve, appendiceal orifice, and rectum were photographed. Findings: The perianal and digital rectal examinations were normal. Multiple small-mouthed diverticula were found in the sigmoid colon. Non-bleeding internal hemorrhoids were found during retroflexion. The hemorrhoids were small. Impression: - Diverticulosis in the sigmoid colon. - Non-bleeding internal hemorrhoids. - No specimens collected. Recommendation: - Resume previous diet. - Continue present medications. - Repeat colonoscopy in 10 years for surveillance. - Return to primary care physician as previously scheduled. Bryan Trinidad, DO 12/30/2016 9:50:58 AM This report has been signed electronically. Note Initiated On: 12/30/2016 8:26 AM I attest to the content of the Intraoperative Record and orders documented therein, exceptions below
== END | disposition home or self-care (01) ==
LOC: C.GI 08:14
PROVIDERS: ATTEND Internal Medicine
DX: K57.30 Diverticulosis of large intestine without perforation or abscess without bleeding (principal); K64.8 Other hemorrhoids; Z80.0 Family history of malignant neoplasm of digestive organs; Z79.899 Other long term (current) drug therapy

== ENCOUNTER → 2017-01-13 | Outpatient (CLI) | payer BC ==
[~2017-01-13] MED LIST changes: -CPR/500 PO; -LIDOCAINE HCL 2% 2 ML VIAL (20MG/ML) ONE; -PROPOFOL IV EMULSION 10 MG/ML 20 ML VIAL IV ONE
--- NOTE | 2017-01-14 07:54 | MAMMOGRAPHY REPORT ---
BILATERAL DIGITAL SCREENING MAMMOGRAM TOMOSYNTHESIS WITH CAD: 01/13/2017 CLINICAL HISTORY: Routine screening. Patient has no complaints. TECHNIQUE: Breast tomosynthesis in addition to standard 2D mammography was performed. Current study was also evaluated with a Computer Aided Detection (CAD) system. COMPARISON: Comparison is made to exams dated: 12/26/2013 mammogram and 04/10/2010 mammogram - [facility]. BREAST COMPOSITION: The tissue of both breasts is almost entirely fatty. FINDINGS: No suspicious masses, calcifications, or areas of architectural distortion are noted in ei ther breast. There has been no significant interval change compared to prior exams. Scattered bilater al benign-appearing calcifications are not significantly changed. IMPRESSION: ACR BI-RADS CATEGORY 2: BENIGN There is no mammographic evidence of malignancy. A 1 year screening mammogram is recommended. The pa tient will receive written notification of the results. Approximately 10% of breast cancers are not detected with mammography. A negative mammographic report should not delay biopsy if a clinically suggestive mass is present. Li Feliz M.D. ah/:01/13/2017 16:21:59 Smooth Plater: Angela MORAN(R)(M), [facility] letter sent: Normal 1/2 BI-RADS Code: ACR BI-RADS Category 2: Benign
== END | disposition home or self-care (01) ==
LOC: C.MAMM 15:24
PROVIDERS: ATTEND Obstetrics & Gynecology
DX: Z12.31 Encounter for screening mammogram for malignant neoplasm of breast (principal)

== ENCOUNTER → 2017-05-27 | Outpatient (CLI) | payer BC | END | disposition home or self-care (01) | LOC: C.PATHSPEC 15:31 | PROVIDERS: ATTEND Obstetrics & Gynecology | DX: N89.8 Other specified noninflammatory disorders of vagina (principal); N89.0 Mild vaginal dysplasia ==

== ENCOUNTER → 2017-06-22 | Outpatient (CLI) | payer BC | END | disposition home or self-care (01) | LOC: C.PATHSPEC 11:23 | PROVIDERS: ATTEND Obstetrics & Gynecology | DX: A63.0 Anogenital (venereal) warts (principal); R87.622 Low grade squamous intraepithelial lesion on cytologic smear of vagina (LGSIL) ==